=== PATIENT | male | born 1935 | race Caucasian/White ===

== ENCOUNTER 2017-09-17 18:21 | Emergency (ER) | payer BC ==
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
[2017-09-17 19:09] VITALS: BP 160/90; PULSE 97; TEMP 97.9; BMI 23.5
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
--- NOTE | 2017-09-17 19:27 | PDOC ---
Attending Attestation - Resident Resident Name: Krishna Saravia - ED Attending Attestation I have performed the following: I have examined & evaluated the patient, The case was reviewed & discussed with the resident, I agree w/resident's findings & plan, Exceptions are as noted - HPI HPI: 09/17/17 19:26 -year-old male brought in by ambulance from home for postsurgical bleeding. He had basal cell carcinoma and had excision done in [place] today. He states his sutures were placed. However, he bled through his packing and became frightened and called 911 - Physicial Exam PE: 09/17/17 19:27 wnwd frail appearing 09/17/17 21:13 frail alert,conversant 82 yo male p/w bleeding thru his surgical wedge resection for basal cell Ca done by his industrial cleaning technician earlier today head extensive surgical incision extending from forehead down to his nose - Medical Decision Making 09/18/17 02:03 Patient received 2 mattress sutures and Surgicel was placed over the area. We were able to stop the bleeding. The patient was discharged home. The plan is for him to follow-up with his industrial cleaning technician later in the day
[2017-09-17] MEDS ORDERED: LIDOCAINE 1%/EPI 1:100000 (20 ML MULTI DOSE VIAL) ONE (20:38)
== END 2017-09-17 21:45 | disposition home or self-care (01) ==
LOC: JER 18:21
PROC: 0HQ1XZZ Repair Face Skin, External Approach (ICD-10-PCS; principal; 2017-09-17)
DX: Z48.01 Encounter for change or removal of surgical wound dressing (principal); I10 Essential (primary) hypertension; K21.9 Gastro-esophageal reflux disease without esophagitis; Z95.5 Presence of coronary angioplasty implant and graft
CPT/HCPCS: 12013; 99282-25

== ENCOUNTER 2018-09-03 08:35 | Inpatient (IN) | payer BC, OTHER ==
[2018-09-03 08:57] VITALS: BMI 28.0
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
[2018-09-03] MEDS ORDERED: SODIUM CHLORIDE 1,000 ML IV STA (09:53)
[2018-09-03 10:45] LABS: EOS % 0.5 % (0-4.5); HEMOGLOBIN 10.7 GM/dL (11.7-16.9); LYMPH % 13.4 % (8-40); MCH 33.5 pg (25.7-33.7); MCHC 32.5 g/dl (32.0-35.9); MEAN PLT VOLUME 8.7 fl (7.5-11.1); MONO % 21.9 % (3.8-10.2); NEUT % 63.2 % (42.8-82.8); PLATELET COUNT 167 K/MM3 (134-434); RDW 22.6 % (11.9-15.9); WHITE BLOOD COUNT 6.2 K/mm3 (4.0-10.0)
[2018-09-03 10:58] LABS: INR 1.54 (0.83-1.09); PROTHROMBIN TIME (PATIENT) 18.3 SEC (9.7-13.0)
[2018-09-03 11:09] LABS: EPI CELLS 3.2 /HPF (0-5/HPF); URINE APPEARANCE CLEAR; URINE BACTERIA 2.4 /hpf (NEGATIVE); URINE BILIRUBIN NEGATIVE (NEGATIVE); URINE CASTS 10 /lpf (0-8); URINE COLOR YELLOW; URINE GLUCOSE (UA) NEGATIVE (NEGATIVE); URINE KETONE TRACE (NEGATIVE); URINE LEUK ESTERASE TRACE (NEGATIVE); URINE NITRITE NEGATIVE (NEGATIVE); URINE PROTEIN NEGATIVE (NEGATIVE); URINE RBC 2 /hpf (0-4); URINE WBC 2 /hpf (0-5)
[2018-09-03 11:18] LABS: ALBUMIN 3.7 g/dl (3.4-5.0); ALK PHOS 81 U/L (45-117); ANION GAP 6 MMOL/L (8-16); BILIRUBIN,TOTAL 0.5 mg/dL (0.2-1); BLOOD UREA NITROGEN 19 mg/dL (7-18); CALCIUM 8.6 mg/dL (8.5-10.1); CHLORIDE 110 mmol/L (98-107); CO2 25 mmol/L (21-32); CREATININE 0.8 mg/dL (0.55-1.3); GLUCOSE,RANDOM 82 mg/dL (74-106); MAGNESIUM 2.7 mg/dL (1.8-2.4); N-TERMINAL BNP 665.7 pg/ml (5-450); POTASSIUM 4.7 mmol/L (3.5-5.1); SGOT/AST 25 U/L (15-37); SGPT/ALT 19 U/L (13-61); SODIUM 141 mmol/L (136-145); TOT PROT 7.8 g/dl (6.4-8.2)
[2018-09-03 11:35] LABS: ANISOCYTOSIS 0; MACROCYTOSIS 0; PLATELET ESTIMATE NORMAL; TARGET CELLS 1+
--- NOTE | 2018-09-03 16:17 | CON.CARD ---
Consult Consult Specialty:: Cardiology for Dr. Cedeno Referred by:: Dr. Héctor Shah Reason for Consultation:: Cardiac evaluation for AF, fatigue and mild BNP elevation - History of Present Illness Chief Complaint: Weakness and palpitations History of Present Illness: ER HPI reviewed: "Mr Roa is an 83 yo M presents to the ER with a complaint of tremulosuness He has a h/o a-fib (on pradaxa), HTN, skin cancer, and bph Pt states he first noted his symptoms yesterday He awoke in his usual state of health, after showering he noted that he felt weak and noted tremulousness He had to sit down, the symptoms lasted approximately 30 minutes and resolved He noted that when he exerted himself through out the day he felt weak and had to limit his activity PMH: Afib, HTN, Skin Cancer, BPH PSH: multiple abdominal surgeries, CEA, numarous skin cancer excisions Meds: please see MAR ALL: NKDA Social: denies alcohol, drug, cigarette use" He denies chest pain but states he felt palpitations twice lastin 5-10 minutes. Episode of diaphoresis with minimal exertion and general increase in exertional fatigue with mild CORTEZ. No PND, orthopnea. No fever of chills. Denies edema or cough. - History Source History Provided By: Patient, Medical Record - Past Medical History PRODUCT GRADER: Yes: Other (TREMOR ) Cardio/Vascular: Yes: AFIB, HTN Gastrointestinal: Yes: GERD Psych: Yes: Depression Musculoskeletal: Yes: Osteoarthritis Dermatology: Yes: Squamous Cell - Past Surgical History Past Surgical History: Yes: Carotid Endarterectomy, Hernia Repair (numerous skin sq cell ca exisions) - Alcohol/Substance Use Hx Alcohol Use: No History of Substance Use: reports: None - Smoking History Smoking history: Never smoked Have you smoked in the past 12 months: No Aproximately how many cigarettes per day: 0 If you are a former smoker, when did you quit?: 1960S - Social History Usual Living Arrangement: Alone History of Recent Travel: No Home Medications - Allergies Allergies/Adverse Reactions: Allergies Allergy/AdvReac Type Severity Reaction Status Date / Time No Known Allergies Allergy Verified 09/17/17 19:05 - Home Medications Home Medications: Ambulatory Orders Omeprazole 20 mg PO DAILY 08/31/11 clonazePAM [Klonopin -] 0.5 mg PO BID 12/05/12 Metoprolol Tartrate 75 mg PO BID 06/11/14 Primidone 250 mg PO BID 06/11/14 Tamsulosin HCl [Flomax -] 0.4 mg PO DAILY 06/11/14 Vitamin B Complex [B Complex] 1 each PO DAILY 06/11/14 Aspirin [Aspirin EC] 81 mg PO DAILY 12/29/15 Dabigatran Etexilate Mesylate [Pradaxa -] 150 mg PO BID cap 01/12/16 Diltiazem Cd [Cardizem Cd -] 240 mg PO DAILY cap.cd.24h 01/12/16 Hydroxyurea 500 mg PO BID 09/17/17 Sertraline HCl [Zoloft -] 50 mg PO DAILY 09/17/17 Ubidecarenone [Coq-10] 100 mg PO DAILY 09/17/17 Family Disease History - Family Disease History Family History: Unremarkable (not pertinent to this presentation) Family Disease History: Heart Disease: Father Review of Systems Findings/Remarks: Increased exertional fatigue. Episodes of palpitations. Episode of diaphoresis. SEE HPI - Review of Systems Constitutional: reports: Weakness HENT: denies: No Symptoms, Difficult Swallowing, Ear Discharge, Ear Pain, Epistaxis, Gingival Bleeding, Hearing Loss, Mouth Swelling, Nasal Congestion, Ocular Prosthesis, Throat Pain, Toothache, Ringing in Ears, Other Neck: denies: No Symptoms, Decreased ROM, Lumps, Pain on Movement, Stiffness, Swollen Glands, Tenderness, Other Cardiovascular: reports: Palpitations Respiratory: reports: SOB on Exertion Gastrointestinal: denies: No Symptoms, Abdominal Pain, Bloating, Constipation, Diarrhea, Dysphagia, Indigestion, Melena, Nausea, Rectal Bleeding, Vomiting, Vomiting Blood, Other Genitourinary: denies: No Symptoms, Burning, Discharge, Dysuria, Flank Pain, Frequency, Hematuria, Incontinence, Lesions, Menses, Pain, Testicular Mass, Testicular Pain, Testicular Swelling, Urgency, Vaginal Bleeding, Other Breasts: denies: No Symptoms Reported, See HPI, Breast Implants, Discharge from Nipple, Lumps, Pain, Skin Changes, Other Musculoskeletal: denies: No Symptoms, Back Pain, Crepitus, Decreased ROM, Extremity Pain, Joint Pain, Joint Swelling, Muscle Pain, Muscle Cramps, Muscle Weakness, Other Integumentary: denies: No Symptoms, Blister, Bruising, Change in Color, Eczema, Erythema, Incision, Lesions, Lump, Pallor, Pruritis, Rash, Wound, Other Neurological: denies: No Symptoms, Change in LOC, Change in Speech, Confusion, Dizziness, Headache, Incoordination, Numbness, Parasthesia, Pre-Existing Deficit , Seizure, Syncope, Tremors, Unsteady Gait, Weakness, Other Endocrine: denies: No Symptoms, Excessive Sweating, Flushing, Increased Hunger, Increased Thirst, Intolerance to Cold, Intolerance to Heat, Unexplained Weight Gain, Unexplained Weight Loss, Other Hematology/Lymphatic: denies: No Symptoms, Easily Bruised, Excessive Bleeding, Swollen Glands, Other Psychiatric: denies: No Symptoms, Altered Sleep Pattern, Anxiety, Depression, Hallucinations, Panic, Paranoia, Suicidal, Other - Risk Factors Known Risk Factors: Yes: Hypertension Vital Signs: Vital Signs Temperature 98.6 F 09/03/18 08:54 Pulse Rate 75 09/03/18 10:59 Respiratory Rate 18 09/03/18 08:54 Blood Pressure 144/80 09/03/18 10:59 O2 Sat by Pulse Oximetry (%) 99 09/03/18 08:57 Constitutional: Yes: No Distress, Calm Eyes: Yes: Conjunctiva Clear Neck: Yes: Other (No JVD) Respiratory: Yes: CTA Bilaterally Gastrointestinal: Yes: Soft Cardiovascular: Yes: Pulse Irregular JVD: No Carotid Bruit: No PMI: Non-Displaced Edema: No Peripheral Pulses WNL: Yes Neurological: Yes: Alert, Oriented ...Motor Strength: WNL Psychiatric: Yes: WNL - Other Data Labs, Other Data: CBC, BMP 09/03/18 10:35 09/03/18 10:35 INR, PTT INR 1.54 (0.83-1.09) H 09/03/18 10:35 Troponin, BNP 09/03/18 10:35 Troponin I < 0.02 B-Natriuretic Peptide 665.7 H Troponin, BNP 09/03/18 10:35 Troponin I < 0.02 B-Natriuretic Peptide 665.7 H Echo: Pending Imaging - Results Chest X-ray: Image Reviewed EKG: Image Reviewed (AF [address] changes.) Problem List - Problems (1) Weakness Code(s): R53.1 - WEAKNESS (2) Atrial fibrillation Code(s): I48.91 - UNSPECIFIED ATRIAL FIBRILLATION Qualifiers: Atrial fibrillation type: persistent Qualified Code(s): I48.1 - Persistent atrial fibrillation (3) Palpitations Code(s): R00.2 - PALPITATIONS Assessment/Plan IMP: 1. Permanent AF on AC 2. Generalized weakness, nonspecific 3. Palpitations. 4. Mildly elevated BNP Cardiac differential includes: AF w/ episodes of RVR vs. Mild acute on chronic diastolic CHF vs. ischemia Unlikely PE with normal O2 saturation; no signs or sx of infection REC: 1. Telemetry to assess AF rates. 2. Serial cardiac enzymes 3. Echo for EF assessment 4. Daily weights 5. Gentle diuresis with monitoring of renal fx and electrolytes 6. Continue AC 7. To consider pharm MIBI prior to d/c pending clinical course, enzymes. Coverage for Dr. Cedeno Will follow.
[2018-09-03] MEDS ORDERED: FUROSEMIDE 40 MG/4 ML INJECTABLE VIAL IVPUSH ONE (16:37)
[2018-09-03] MEDS ORDERED: FUROSEMIDE 40 MG/4 ML INJECTABLE VIAL IVPUSH SCH (16:45)
[2018-09-03] MEDS ORDERED: FUROSEMIDE 40 MG/4 ML INJECTABLE VIAL ONE (16:52)
[2018-09-03] MEDS: METOPROLOL TARTRATE 50 MG TABLET (FP) PO SCH (22:05)
[2018-09-03] MEDS: DABIGATRAN ETEXILATE MESYLATE 150 MG CAPSULE PO SCH (22:05)
[2018-09-03] MEDS: PRIMIDONE 250 MG TABLET PO SCH (23:00)
[2018-09-04] MEDS: PRIMIDONE 250 MG TABLET PO SCH ×3 (05:24→22:14)
[2018-09-04 07:51] LABS: BASO % 1.5 % (0-2.0); EOS % 2.7 % (0-4.5); HEMATOCRIT 32.3 % (35.4-49); HEMOGLOBIN 10.5 GM/dL (11.7-16.9); LYMPH % 17.3 % (8-40); MCH 33.4 pg (25.7-33.7); MCHC 32.5 g/dl (32.0-35.9); MEAN CELL VOLUME 102.8 fl (80-96); MEAN PLT VOLUME 8.7 fl (7.5-11.1); NEUT % 51.5 % (42.8-82.8); PLATELET COUNT 145 K/MM3 (134-434); RBC 3.14 M/mm3 (4.00-5.60); WHITE BLOOD COUNT 4.7 K/mm3 (4.0-10.0)
[2018-09-04 08:06] LABS: ALBUMIN 3.6 g/dl (3.4-5.0); ALK PHOS 85 U/L (45-117); ANION GAP 6 MMOL/L (8-16); BILIRUBIN,TOTAL 0.9 mg/dL (0.2-1); BLOOD UREA NITROGEN 15 mg/dL (7-18); CALCIUM 8.4 mg/dL (8.5-10.1); CHLORIDE 107 mmol/L (98-107); CO2 24 mmol/L (21-32); CREATININE 0.7 mg/dL (0.55-1.3); GLUCOSE,RANDOM 84 mg/dL (74-106); MAGNESIUM 2.4 mg/dL (1.8-2.4); SGOT/AST 22 U/L (15-37); SGPT/ALT 23 U/L (13-61); SODIUM 137 mmol/L (136-145); TOT PROT 7.4 g/dl (6.4-8.2)
[2018-09-04] MEDS ORDERED: PT OWN MED DRAWER 7, Y5N ONE ×3 (10:37→21:37)
[2018-09-04] MEDS: METOPROLOL TARTRATE 50 MG TABLET (FP) PO SCH ×2 (10:38→22:11)
[2018-09-04] MEDS: TAMSULOSIN HCL 0.4 MG CAP PO SCH (10:38)
[2018-09-04] MEDS: FINASTERIDE 5 MG TABLET (FP) PO SCH (10:38)
[2018-09-04] MEDS: SERTRALINE HCL 50 MG TABLET (FP) PO SCH (10:38)
[2018-09-04] MEDS: PANTOPRAZOLE 40 MG TABLET (FP) PO SCH (10:39)
[2018-09-04] MEDS: DABIGATRAN ETEXILATE MESYLATE 150 MG CAPSULE PO SCH ×2 (10:39→22:11)
[2018-09-04 11:29] LABS: ANISOCYTOSIS 1+; MACROCYTOSIS 1+; PLATELET ESTIMATE DECREASED; TARGET CELLS 1+
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
--- NOTE | 2018-09-04 12:35 | HP ---
Admitting History and Physical - Admission Chief Complaint: c/o palpitations vs high heart rate ? sweating weakness x 2days especially. when standing History Source: Patient Limitations to Obtaining History: No Limitations - Past Medical History CORRECTIVE THERAPY AIDE: Yes: Other (TREMOR ) Cardiovascular: Yes: AFIB, HTN Gastrointestinal: Yes: GERD Heme/Onc: Yes: Cancer (squamous cell skin), Myeloproliferative Synd Psych: Yes: Depression Musculoskeletal: Yes: Osteoarthritis Dermatology: Yes: Squamous Cell - Past Surgical History Past Surgical History: Yes: Carotid Endarterectomy, Hernia Repair (numerous skin sq cell ca exisions) - Smoking History Smoking history: Never smoked Have you smoked in the past 12 months: No Aproximately how many cigarettes per day: 0 If you are a former smoker, when did you quit?: 1960S - Alcohol/Substance Use Hx Alcohol Use: No History of Substance Use: reports: None - Social History Usual Living Arrangement: Yes: Alone ADL: Independent History of Recent Travel: No Home Medications - Allergies Allergies/Adverse Reactions: Allergies Allergy/AdvReac Type Severity Reaction Status Date / Time No Known Allergies Allergy Verified 09/17/17 19:05 - Home Medications Home Medications: Ambulatory Orders Omeprazole 20 mg PO DAILY 08/31/11 clonazePAM [Klonopin -] 0.5 mg PO BID 12/05/12 Metoprolol Tartrate 75 mg PO BID 06/11/14 Primidone 250 mg PO BID 06/11/14 Tamsulosin HCl [Flomax -] 0.4 mg PO DAILY 06/11/14 Vitamin B Complex [B Complex] 1 each PO DAILY 06/11/14 Aspirin [Aspirin EC] 81 mg PO DAILY 12/29/15 Dabigatran Etexilate Mesylate [Pradaxa -] 150 mg PO BID cap 01/12/16 Diltiazem Cd [Cardizem Cd -] 240 mg PO DAILY cap.cd.24h 01/12/16 Hydroxyurea 500 mg PO BID 09/17/17 Sertraline HCl [Zoloft -] 50 mg PO DAILY 09/17/17 Ubidecarenone [Coq-10] 100 mg PO DAILY 09/17/17 Family Disease History - Family Disease History Family History: Unremarkable Family Disease History: Heart Disease: Father Review of Systems - Review of Systems Constitutional: reports: Weakness Eyes: reports: No Symptoms HENT: reports: No Symptoms Neck: reports: No Symptoms Cardiovascular: reports: No Symptoms, Palpitations Respiratory: reports: No Symptoms Gastrointestinal: reports: No Symptoms Genitourinary: reports: No Symptoms Breasts: reports: No Symptoms Reported Musculoskeletal: reports: No Symptoms Integumentary: reports: No Symptoms Neurological: reports: No Symptoms Endocrine: reports: No Symptoms Hematology/Lymphatic: reports: No Symptoms Psychiatric: reports: No Symptoms Physical Examination Vital Signs: Vital Signs Temperature 98.1 F 09/04/18 09:00 Pulse Rate 102 H 09/04/18 09:00 Respiratory Rate 20 09/04/18 09:00 Blood Pressure 148/75 09/04/18 09:00 O2 Sat by Pulse Oximetry (%) 98 09/03/18 23:00 Constitutional: Yes: Well Nourished Eyes: Yes: WNL HENT: Yes: WNL Neck: Yes: Other (tremor?) Cardiovascular: Yes: Pulse Irregular Respiratory: Yes: WNL Gastrointestinal: Yes: WNL ...Rectal Exam: Yes: Deferred Renal/: Yes: WNL, Other (scrotal hernia chronic) Breast(s): Yes: WNL Musculoskeletal: Yes: WNL Extremities: Yes: WNL Edema: No Peripheral Pulses WNL: Yes Integumentary: Yes: WNL Neurological: Yes: Other (temor n/c) ...Motor Strength: WNL Psychiatric: Yes: WNL Labs: CBC, BMP 09/04/18 05:40 09/04/18 05:40 Assessment/Plan stress rest cont to moniter tele symptoms cont all tx as is chk echo and will advse gental diurisis?based on bnp level will chk to see if he had appropriate vaccines foe splenectomy prophylaxisi hib ? flu pneumonia given ? menigitis will see
--- NOTE | 2018-09-04 13:39 | EKG ---
Test Reason : Blood Pressure : / mmHG Vent. Rate : 075 BPM Atrial Rate : 088 BPM P-R Int : 000 ms QRS Dur : 086 ms QT Int : 378 ms P-R-T Axes : 000 -20 016 degrees QTc Int : 422 ms ATRIAL FIBRILLATION ABNORMAL ECG WHEN COMPARED WITH ECG OF 30-DEC-2015 08:43, VENT. RATE HAS DECREASED BY [address] NO LONGER DEPRESSED IN ANTERIOR LEADS ST ELEVATION NOW PRESENT IN LATERAL LEADS T WAVE INVERSION LESS EVIDENT IN INFERIOR LEADS NONSPECIFIC T WAVE ABNORMALITY NO LONGER EVIDENT IN ANTEROLATERAL LEADS Confirmed by MATTHEW ADAMES MD ([id number]) on 09/04/2018 1:39:09 PM Referred By: Confirmed By:MATTHEW ADAMES MD
--- NOTE | 2018-09-04 14:26 | ECHO ---
Name: MELLO OLIVER Exam:Adult Echocardiogram Study Date: 09/04/2018 08:37 AM Age: 83 yrs Reason For Study: CHF Height: 69 in Weight: 190 lb BSA: 2.0 m2 MMode/2D Measurements & Calculations IVSd: 0.99 cm Ao root diam: 3.7 cm LVIDd: 4.9 cm LA dimension: 4.3 cm LVIDs: 3.1 cm LVPWd: 0.96 cm EDV(Teich): 114.9 ml LVOT diam: 2.3 cm ESV(Teich): 39.0 ml LAV (MOD-bp): 206.0 ml Time Measurements Pulm. R-R: 0.76 sec Pulm. HR: 79.0 BPM Doppler Measurements & Calculations MV E max pk: 77.5 cm/sec Ao V2 max: 98.4 cm/sec MV A max pk: 25.7 cm/sec Ao max P.0 mmHg MV E/A: 3.0 Ao V2 mean: 101.5 cm/sec MV dec time: 0.15 sec Ao mean P.8 mmHg Ao V2 VTI: 28.9 cm TONY(I,D): 1.9 cm2 AI P1/2t: 917.8 msec TONY(V,D): 3.2 cm2 AI max pk: 318.2 cm/sec LV V1 max P.4 mmHg AI max P.5 mmHg LV V1 mean P.99 mmHg AI dec slope: 101.6 cm/sec2 LV V1 max: 77.1 cm/sec LV V1 mean: 46.2 cm/sec LV V1 VTI: 13.2 cm MR max pk: 600.7 cm/sec SV(LVOT): 54.0 ml MR max P.5 mmHg TR max pk: 217.7 cm/sec PI end-d pk: 108.6 cm/sec TR max P.2 mmHg Med Peak E' Pk: 8.0 cm/sec Med E/e': 9.7 Lat Peak E' Pk: 11.0 cm/sec Lat E/e': 7.1 Procedure A complete two-dimensional transthoracic echocardiogram was performed (2D, M-mode, Doppler and color flow Doppler). Left Ventricle The left ventricular size, thickness and function are normal. The left ventricular ejection fraction is normal. Ejection Fraction = 60-65%. The left ventricular wall motion is normal. Right Ventricle The right ventricle is normal in size and function. Atria The left atrium is moderately dilated. Right atrial size is normal. Mitral Valve There is moderate mitral regurgitation. Tricuspid Valve There is mild tricuspid regurgitation. Right ventricular systolic pressure is normal. Aortic Valve No hemodynamically significant valvular aortic stenosis. Mild aortic regurgitation. Pulmonic Valve There is no pulmonic valvular regurgitation. Great Vessels The aortic root is normal size. Pericardium/Pleura There is no pericardial effusion. Interpretation Summary The left ventricular size, thickness and function are normal The right ventricle is normal in size and function. The left atrium is moderately dilated. There is moderate mitral regurgitation. There is mild tricuspid regurgitation. Mild aortic regurgitation. MD Daniel rCuz 09/04/2018 02:26 PM
--- NOTE | 2018-09-04 14:53 | PN ---
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 No chest pain, palps, dizziness. tele: afib, rate controlled Current Medications Dabigatran (Pradaxa -) 150 mg PO BID [facility] Last Admin: 09/04/18 10:39 Dose: 150 mg Diltiazem HCl (Cardizem Cd -) 240 mg PO DAILY [facility] Last Admin: 09/04/18 10:38 Dose: 240 mg Finasteride (Proscar -) 5 mg PO DAILY [facility] Last Admin: 09/04/18 10:38 Dose: 5 mg Hydroxyurea (Hydrea -) 500 mg PO DAILY [facility] Metoprolol Tartrate (Lopressor -) 75 mg PO BID [facility] Last Admin: 09/04/18 10:38 Dose: 75 mg Pantoprazole Sodium (Protonix -) 40 mg PO DAILY [facility] Last Admin: 09/04/18 10:39 Dose: 40 mg Primidone (Mysoline -) 250 mg PO TID [facility] Last Admin: 09/04/18 14:02 Dose: 250 mg Sertraline HCl (Zoloft -) 50 mg PO DAILY [facility] Last Admin: 09/04/18 10:38 Dose: 50 mg Tamsulosin HCl (Flomax -) 0.4 mg PO DAILY@0830 [facility] Last Admin: 09/04/18 10:38 Dose: 0.4 mg Vital Signs Period Temp Pulse Resp BP Sys/Thomas Pulse Ox Last 24 Hr 97.8 F-98.1 F 70-102 18-20 131-183/71-101 98-98 Constitutional: Yes: No Distress, Calm Eyes: Yes: Conjunctiva Clear Neck: Yes: Other (No JVD) Respiratory: Yes: CTA Bilaterally Gastrointestinal: Yes: Soft Cardiovascular: Yes: Pulse Irregular JVD: No Carotid Bruit: No PMI: Non-Displaced Edema: No Peripheral Pulses WNL: Yes Neurological: Yes: Alert, Oriented ...Motor Strength: WNL Psychiatric: Yes: WNL Imaging - Results Chest X-ray: Image Reviewed EKG: Image Reviewed (AF [address] changes.) Problem List - Problems (1) Weakness Code(s): R53.1 - WEAKNESS (2) Atrial fibrillation Code(s): I48.91 - UNSPECIFIED ATRIAL FIBRILLATION Qualifiers: Atrial fibrillation type: persistent Qualified Code(s): I48.1 - Persistent atrial fibrillation (3) Palpitations Code(s): R00.2 - PALPITATIONS Assessment/Plan IMP: 1. Permanent AF on AC 2. Generalized weakness, nonspecific 3. Palpitations. 4. Mildly elevated BNP Cardiac differential includes: AF w/ episodes of RVR vs. Mild acute on chronic diastolic CHF vs. ischemia Unlikely PE with normal O2 saturation; no signs or sx of infection REC: 1. AF rate controlled on telemetry 2. trop neg x 4, less likely ACS 3. Echo shows nl LV function, mod MR. 4. Daily weights 5. Received lasix 20 mg IV yesterday, feels better. Appears euvolemic today, defer further lasix. 6. Continue AC 7. Pharm mibi for further evaluation
[2018-09-04] MEDS: HYDROXYUREA 500 MG CAPSULE PO SCH (17:32)
[2018-09-05] MEDS: PRIMIDONE 250 MG TABLET PO SCH ×3 (07:05→21:54)
[2018-09-05 07:15] LABS: BASO % 1.2 % (0-2.0); HEMATOCRIT 32.5 % (35.4-49); HEMOGLOBIN 10.6 GM/dL (11.7-16.9); LYMPH % 19.3 % (8-40); MCH 33.4 pg (25.7-33.7); MCHC 32.5 g/dl (32.0-35.9); MEAN CELL VOLUME 102.7 fl (80-96); MEAN PLT VOLUME 8.9 fl (7.5-11.1); MONO % 24.1 % (3.8-10.2); NEUT % 52.4 % (42.8-82.8); PLATELET COUNT 135 K/MM3 (134-434); RBC 3.17 M/mm3 (4.00-5.60); RDW 22.5 % (11.9-15.9); WHITE BLOOD COUNT 5.7 K/mm3 (4.0-10.0)
[2018-09-05 08:03] LABS: ALBUMIN 3.5 g/dl (3.4-5.0); ALK PHOS 84 U/L (45-117); ANION GAP 6 MMOL/L (8-16); BILIRUBIN,TOTAL 0.6 mg/dL (0.2-1); BLOOD UREA NITROGEN 15 mg/dL (7-18); CALCIUM 8.1 mg/dL (8.5-10.1); CHLORIDE 107 mmol/L (98-107); CO2 24 mmol/L (21-32); CREATININE 0.7 mg/dL (0.55-1.3); GLUCOSE,RANDOM 82 mg/dL (74-106); LDH 132 U/L (87-246); SGOT/AST 27 U/L (15-37); SGPT/ALT 30 U/L (13-61); SODIUM 138 mmol/L (136-145); TOT PROT 7.1 g/dl (6.4-8.2)
[2018-09-05] MEDS: TAMSULOSIN HCL 0.4 MG CAP PO SCH ×2 (08:36→14:09)
[2018-09-05] MEDS ORDERED: REGADENOSON 0.4 MG/5 ML PRE-FILLED SYRINGE IVPUSH ONE ×2 (09:15→10:10)
--- NOTE | 2018-09-05 09:22 | PN ---
Progress Note, Physician Chief Complaint: no distress TELE: AF with average rate 90s. - Current Medication List Current Medications: Active Medications Dabigatran (Pradaxa -) 150 mg PO BID [facility] Last Admin: 09/04/18 22:11 Dose: 150 mg Diltiazem HCl (Cardizem Cd -) 240 mg PO DAILY [facility] Last Admin: 09/04/18 10:38 Dose: 240 mg Finasteride (Proscar -) 5 mg PO DAILY [facility] Last Admin: 09/04/18 10:38 Dose: 5 mg Hydroxyurea (Hydrea -) 500 mg PO DAILY [facility] Last Admin: 09/04/18 17:32 Dose: 500 mg Metoprolol Tartrate (Lopressor -) 75 mg PO BID [facility] Last Admin: 09/04/18 22:11 Dose: 75 mg Pantoprazole Sodium (Protonix -) 40 mg PO DAILY [facility] Last Admin: 09/04/18 10:39 Dose: 40 mg Primidone (Mysoline -) 250 mg PO TID [facility] Last Admin: 09/05/18 07:05 Dose: Not Given Sertraline HCl (Zoloft -) 50 mg PO DAILY [facility] Last Admin: 09/04/18 10:38 Dose: 50 mg Tamsulosin HCl (Flomax -) 0.4 mg PO DAILY@0830 [facility] Last Admin: 09/05/18 08:36 Dose: Not Given - Objective Vital Signs: Vital Signs Temperature 97.9 F 09/05/18 09:00 Pulse Rate 82 09/05/18 09:00 Respiratory Rate 18 09/05/18 09:00 Blood Pressure 156/90 09/05/18 09:00 O2 Sat by Pulse Oximetry (%) 98 09/05/18 07:00 Constitutional: Yes: No Distress Cardiovascular: Yes: Pulse Irregular Respiratory: Yes: CTA Bilaterally Gastrointestinal: Yes: Soft Neurological: Yes: Alert, Oriented Labs: CBC, BMP 09/05/18 05:30 09/05/18 05:30 INR, PTT INR 1.54 (0.83-1.09) H 09/03/18 10:35 Laboratory Tests 09/03/18 09/03/18 09/04/18 17:05 21:20 05:40 WBC Hgb Plt Count Sodium Potassium BUN Creatinine Troponin I < 0.02 < 0.02 < 0.02 09/05/18 09/05/18 05:30 05:30 WBC 5.7 Hgb 10.6 L Plt Count 135 Sodium 138 Potassium 4.0 BUN 15 Creatinine 0.7 Troponin I - ....Imaging EKG: Image Reviewed Problem List - Problems (1) Weakness Code(s): R53.1 - WEAKNESS (2) Atrial fibrillation Code(s): I48.91 - UNSPECIFIED ATRIAL FIBRILLATION Qualifiers: Atrial fibrillation type: persistent Qualified Code(s): I48.1 - Persistent atrial fibrillation (3) Palpitations Code(s): R00.2 - PALPITATIONS Assessment/Plan IMP: 1. Permanent AF on AC 2. Generalized weakness, nonspecific 3. Palpitations. 4. Mildly elevated BNP Cardiac differential includes: AF w/ episodes of RVR vs. Mild acute on chronic diastolic CHF vs. ischemia Unlikely PE with normal O2 saturation; no signs or sx of infection REC: 1. AF rate controlled on telemetry 2. Trop neg x 4 3. Echo shows nl LV function, mod MR. 4. Daily weights 5. Euvolemic. No further diuretic recommended at this time. 6. Continue AC 7. Pharm mibi today
[2018-09-05] MEDS ORDERED: METOPROLOL TARTRATE 5 MG/5 ML VIAL ONE (12:29)
[2018-09-05] MEDS ORDERED: AMINOPHYLLINE 250 MG/10 ML VIAL IVPUSH ONE ×2 (12:30)
[2018-09-05] MEDS ORDERED: METOPROLOL TARTRATE 5 MG/5 ML VIAL IVPUSH ONE ×2 (12:30)
[2018-09-05 13:12] LABS: ANISOCYTOSIS 0; MACROCYTOSIS 0; PLATELET ESTIMATE NORMAL; TARGET CELLS 1+
--- NOTE | 2018-09-05 13:13 | PN ---
Progress Note, Physician - Current Medication List Current Medications: Active Medications Dabigatran (Pradaxa -) 150 mg PO BID [facility] Last Admin: 09/04/18 22:11 Dose: 150 mg Diltiazem HCl (Cardizem Cd -) 240 mg PO DAILY [facility] Last Admin: 09/04/18 10:38 Dose: 240 mg Finasteride (Proscar -) 5 mg PO DAILY [facility] Last Admin: 09/04/18 10:38 Dose: 5 mg Hydroxyurea (Hydrea -) 500 mg PO DAILY [facility] Last Admin: 09/04/18 17:32 Dose: 500 mg Metoprolol Tartrate (Lopressor -) 75 mg PO BID [facility] Last Admin: 09/04/18 22:11 Dose: 75 mg Pantoprazole Sodium (Protonix -) 40 mg PO DAILY [facility] Last Admin: 09/04/18 10:39 Dose: 40 mg Primidone (Mysoline -) 250 mg PO TID [facility] Last Admin: 09/05/18 07:05 Dose: Not Given Sertraline HCl (Zoloft -) 50 mg PO DAILY [facility] Last Admin: 09/04/18 10:38 Dose: 50 mg Tamsulosin HCl (Flomax -) 0.4 mg PO DAILY@0830 [facility] Last Admin: 09/05/18 08:36 Dose: Not Given - Objective Vital Signs: Vital Signs Temperature 97.9 F 09/05/18 09:00 Pulse Rate 82 09/05/18 09:00 Respiratory Rate 18 09/05/18 09:00 Blood Pressure 156/90 09/05/18 09:00 O2 Sat by Pulse Oximetry (%) 98 09/05/18 07:00 Labs: CBC, BMP 09/05/18 05:30 09/05/18 05:30 INR, PTT INR 1.54 (0.83-1.09) H 09/03/18 10:35 Assessment/Plan pt ?need p/y nh w sprain manor will speak to pt
[2018-09-05] MEDS: PANTOPRAZOLE 40 MG TABLET (FP) PO SCH (14:09)
[2018-09-05] MEDS: FINASTERIDE 5 MG TABLET (FP) PO SCH (14:09)
[2018-09-05] MEDS: SERTRALINE HCL 50 MG TABLET (FP) PO SCH (14:09)
[2018-09-05] MEDS: DABIGATRAN ETEXILATE MESYLATE 150 MG CAPSULE PO SCH ×2 (14:10→21:53)
[2018-09-05] MEDS: METOPROLOL TARTRATE 50 MG TABLET (FP) PO SCH ×2 (14:11→21:53)
[2018-09-05] MEDS: HYDROXYUREA 500 MG CAPSULE PO SCH (14:13)
[2018-09-05] MEDS ORDERED: PT OWN MED DRAWER 7, Y5N ONE ×2 (14:13→21:40)
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
[2018-09-06 04:10] LABS: SERUM IRON SATURATION 52 % (15-55); TOTAL IRON BINDING CAPACITY 176 ug/dL (250-450); UIBC 84 ug/dL (111-343)
[2018-09-06] MEDS: PRIMIDONE 250 MG TABLET PO SCH ×3 (05:10→22:00)
[2018-09-06] MEDS ORDERED: PT OWN MED DRAWER 7, Y5N ONE ×4 (08:27→21:58)
[2018-09-06] MEDS: TAMSULOSIN HCL 0.4 MG CAP PO SCH (09:44)
[2018-09-06] MEDS: DABIGATRAN ETEXILATE MESYLATE 150 MG CAPSULE PO SCH ×2 (09:44→22:00)
[2018-09-06] MEDS: HYDROXYUREA 500 MG CAPSULE PO SCH (09:44)
[2018-09-06] MEDS: SERTRALINE HCL 50 MG TABLET (FP) PO SCH (09:44)
[2018-09-06] MEDS: METOPROLOL TARTRATE 50 MG TABLET (FP) PO SCH ×2 (09:44→22:00)
[2018-09-06] MEDS: PANTOPRAZOLE 40 MG TABLET (FP) PO SCH (09:45)
[2018-09-06] MEDS: FINASTERIDE 5 MG TABLET (FP) PO SCH (09:45)
--- NOTE | 2018-09-06 11:09 | PN ---
Progress Note, Physician History of Present Illness: No complaints Tele: Afib 60-120s - Current Medication List Current Medications: Active Medications Dabigatran (Pradaxa -) 150 mg PO BID [facility] Last Admin: 09/06/18 09:44 Dose: 150 mg Diltiazem HCl (Cardizem Cd -) 240 mg PO DAILY [facility] Last Admin: 09/06/18 09:44 Dose: 240 mg Finasteride (Proscar -) 5 mg PO DAILY [facility] Last Admin: 09/06/18 09:45 Dose: 5 mg Hydroxyurea (Hydrea -) 500 mg PO DAILY [facility] Last Admin: 09/06/18 09:44 Dose: 500 mg Metoprolol Tartrate (Lopressor -) 100 mg PO BID [facility] Last Admin: 09/06/18 09:44 Dose: 100 mg Pantoprazole Sodium (Protonix -) 40 mg PO DAILY [facility] Last Admin: 09/06/18 09:45 Dose: 40 mg Primidone (Mysoline -) 250 mg PO TID [facility] Last Admin: 09/06/18 05:10 Dose: 250 mg Sertraline HCl (Zoloft -) 50 mg PO DAILY [facility] Last Admin: 09/06/18 09:44 Dose: 50 mg Tamsulosin HCl (Flomax -) 0.4 mg PO DAILY@0830 [facility] Last Admin: 09/06/18 09:44 Dose: 0.4 mg - Objective Vital Signs: Vital Signs Temperature 98.2 F 09/06/18 06:00 Pulse Rate 101 H 09/06/18 10:00 Respiratory Rate 20 09/06/18 10:00 Blood Pressure 142/70 09/06/18 10:00 O2 Sat by Pulse Oximetry (%) 97 09/06/18 05:00 Constitutional: Yes: Calm Cardiovascular: Yes: Pulse Irregular Respiratory: Yes: CTA Bilaterally Edema: No Labs: CBC, BMP 09/05/18 05:30 09/05/18 05:30 INR, PTT INR 1.54 (0.83-1.09) H 09/03/18 10:35 Assessment/Plan IMP: 1. Permanent AF on AC 2. Generalized weakness, nonspecific 3. Palpitations. 4. Mildly elevated BNP, Euvolemic. Creat stable. No further diuretic recommended at this time. 5. Echo shows nl LV function, mod MR. 6. Pharma MIBI with normal perfusion. LVEf 62% REC: 1. AF rate controlled on telemetry 2. Continue AC, on Dabigatran 150mg BID
--- NOTE | 2018-09-06 11:26 | PN ---
Progress Note, Physician History of Present Illness: hr rate better vss watch heart rate ? reflex ? d/c saturday ? home - Current Medication List Current Medications: Active Medications Dabigatran (Pradaxa -) 150 mg PO BID [facility] Last Admin: 09/06/18 09:44 Dose: 150 mg Diltiazem HCl (Cardizem Cd -) 240 mg PO DAILY [facility] Last Admin: 09/06/18 09:44 Dose: 240 mg Finasteride (Proscar -) 5 mg PO DAILY [facility] Last Admin: 09/06/18 09:45 Dose: 5 mg Hydroxyurea (Hydrea -) 500 mg PO DAILY [facility] Last Admin: 09/06/18 09:44 Dose: 500 mg Metoprolol Tartrate (Lopressor -) 100 mg PO BID [facility] Last Admin: 09/06/18 09:44 Dose: 100 mg Pantoprazole Sodium (Protonix -) 40 mg PO DAILY [facility] Last Admin: 09/06/18 09:45 Dose: 40 mg Primidone (Mysoline -) 250 mg PO TID [facility] Last Admin: 09/06/18 05:10 Dose: 250 mg Sertraline HCl (Zoloft -) 50 mg PO DAILY [facility] Last Admin: 09/06/18 09:44 Dose: 50 mg Tamsulosin HCl (Flomax -) 0.4 mg PO DAILY@0830 [facility] Last Admin: 09/06/18 09:44 Dose: 0.4 mg - Objective Vital Signs: Vital Signs Temperature 98.2 F 09/06/18 06:00 Pulse Rate 101 H 09/06/18 10:00 Respiratory Rate 20 09/06/18 10:00 Blood Pressure 142/70 09/06/18 10:00 O2 Sat by Pulse Oximetry (%) 99 09/06/18 11:12 Labs: CBC, BMP 09/05/18 05:30 09/05/18 05:30 INR, PTT INR 1.54 (0.83-1.09) H 09/03/18 10:35
[2018-09-07] MEDS ORDERED: PT OWN MED DRAWER 7, Y5N ONE ×2 (05:01→16:29)
[2018-09-07] MEDS: PRIMIDONE 250 MG TABLET PO SCH ×3 (05:03→21:36)
[2018-09-07 07:44] LABS: BASO % 1.9 % (0-2.0); HEMOGLOBIN 10.1 GM/dL (11.7-16.9); LYMPH % 28.2 % (8-40); MCH 33.5 pg (25.7-33.7); MCHC 32.6 g/dl (32.0-35.9); MEAN CELL VOLUME 102.7 fl (80-96); MEAN PLT VOLUME 9.1 fl (7.5-11.1); MONO % 25.8 % (3.8-10.2); NEUT % 39.1 % (42.8-82.8); PLATELET COUNT 120 K/MM3 (134-434); RBC 3.02 M/mm3 (4.00-5.60); RDW 22.6 % (11.9-15.9); WHITE BLOOD COUNT 4.4 K/mm3 (4.0-10.0)
[2018-09-07 08:00] LABS: ANION GAP 6 MMOL/L (8-16); BLOOD UREA NITROGEN 13 mg/dL (7-18); CALCIUM 8.4 mg/dL (8.5-10.1); CHLORIDE 107 mmol/L (98-107); CO2 25 mmol/L (21-32); CREATININE 0.7 mg/dL (0.55-1.3); GLUCOSE,RANDOM 87 mg/dL (74-106); POTASSIUM 4.2 mmol/L (3.5-5.1); SODIUM 138 mmol/L (136-145)
[2018-09-07] MEDS: PANTOPRAZOLE 40 MG TABLET (FP) PO SCH (09:40)
[2018-09-07] MEDS: DABIGATRAN ETEXILATE MESYLATE 150 MG CAPSULE PO SCH ×2 (09:40→21:36)
[2018-09-07] MEDS: FINASTERIDE 5 MG TABLET (FP) PO SCH (09:40)
[2018-09-07] MEDS: SERTRALINE HCL 50 MG TABLET (FP) PO SCH (09:40)
[2018-09-07] MEDS: TAMSULOSIN HCL 0.4 MG CAP PO SCH (09:40)
[2018-09-07] MEDS: METOPROLOL TARTRATE 50 MG TABLET (FP) PO SCH ×2 (09:40→21:36)
[2018-09-07] MEDS: HYDROXYUREA 500 MG CAPSULE PO SCH (09:41)
--- NOTE | 2018-09-07 10:17 | PN ---
Progress Note, Physician - Current Medication List Current Medications: Active Medications Dabigatran (Pradaxa -) 150 mg PO BID [facility] Last Admin: 09/07/18 09:40 Dose: 150 mg Diltiazem HCl (Cardizem Cd -) 240 mg PO DAILY [facility] Last Admin: 09/07/18 09:40 Dose: 240 mg Finasteride (Proscar -) 5 mg PO DAILY [facility] Last Admin: 09/07/18 09:40 Dose: 5 mg Hydroxyurea (Hydrea -) 500 mg PO DAILY [facility] Last Admin: 09/07/18 09:41 Dose: 500 mg Metoprolol Tartrate (Lopressor -) 100 mg PO BID [facility] Last Admin: 09/07/18 09:40 Dose: 100 mg Pantoprazole Sodium (Protonix -) 40 mg PO DAILY [facility] Last Admin: 09/07/18 09:40 Dose: 40 mg Primidone (Mysoline -) 250 mg PO TID [facility] Last Admin: 09/07/18 05:03 Dose: 250 mg Sertraline HCl (Zoloft -) 50 mg PO DAILY [facility] Last Admin: 09/07/18 09:40 Dose: 50 mg Tamsulosin HCl (Flomax -) 0.4 mg PO DAILY@0830 [facility] Last Admin: 09/07/18 09:40 Dose: 0.4 mg - Objective Vital Signs: Vital Signs Temperature 98 F 09/07/18 09:00 Pulse Rate 68 09/07/18 09:00 Respiratory Rate 18 09/07/18 09:00 Blood Pressure 128/80 09/07/18 09:00 O2 Sat by Pulse Oximetry (%) 98 09/06/18 20:37 Constitutional: Yes: Well Nourished Eyes: Yes: WNL HENT: Yes: WNL Neck: Yes: WNL Cardiovascular: Yes: Pulse Irregular, S4 Gastrointestinal: Yes: WNL ...Rectal Exam: Yes: Deferred Genitourinary: Yes: WNL Breast(s): Yes: WNL Musculoskeletal: Yes: WNL Edema: No Peripheral Pulses WNL: Yes Integumentary: Yes: WNL Neurological: Yes: WNL ...Motor Strength: WNL Psychiatric: Yes: WNL Labs: CBC, BMP 09/07/18 05:30 09/07/18 05:30 INR, PTT INR 1.54 (0.83-1.09) H 09/03/18 10:35 Assessment/Plan d/c in am had p/t already rufusing rehab vss hr better will give scrips in am and educate why betablockers changed dose
--- NOTE | 2018-09-07 11:09 | PN ---
Progress Note, Physician History of Present Illness: No complaits Was told by Dr. Shah to plan for d/c on [facility] Tele: AFib with 2.08 sec pauses - Current Medication List Current Medications: Active Medications Dabigatran (Pradaxa -) 150 mg PO BID [facility] Last Admin: 09/07/18 09:40 Dose: 150 mg Diltiazem HCl (Cardizem Cd -) 240 mg PO DAILY [facility] Last Admin: 09/07/18 09:40 Dose: 240 mg Finasteride (Proscar -) 5 mg PO DAILY [facility] Last Admin: 09/07/18 09:40 Dose: 5 mg Hydroxyurea (Hydrea -) 500 mg PO DAILY [facility] Last Admin: 09/07/18 09:41 Dose: 500 mg Metoprolol Tartrate (Lopressor -) 100 mg PO BID [facility] Last Admin: 09/07/18 09:40 Dose: 100 mg Pantoprazole Sodium (Protonix -) 40 mg PO DAILY [facility] Last Admin: 09/07/18 09:40 Dose: 40 mg Primidone (Mysoline -) 250 mg PO TID [facility] Last Admin: 09/07/18 05:03 Dose: 250 mg Sertraline HCl (Zoloft -) 50 mg PO DAILY [facility] Last Admin: 09/07/18 09:40 Dose: 50 mg Tamsulosin HCl (Flomax -) 0.4 mg PO DAILY@0830 [facility] Last Admin: 09/07/18 09:40 Dose: 0.4 mg - Objective Vital Signs: Vital Signs Temperature 98 F 09/07/18 09:00 Pulse Rate 68 09/07/18 09:00 Respiratory Rate 18 09/07/18 09:00 Blood Pressure 128/80 09/07/18 09:00 O2 Sat by Pulse Oximetry (%) 98 09/06/18 20:37 Constitutional: Yes: No Distress, Calm Cardiovascular: Yes: Pulse Irregular Respiratory: Yes: CTA Bilaterally Edema: No Labs: CBC, BMP 09/07/18 05:30 09/07/18 05:30 INR, PTT INR 1.54 (0.83-1.09) H 09/03/18 10:35 Assessment/Plan IMP: 1. Permanent AF on AC stable 2. Generalized weakness, nonspecific 3. Palpitations. 4. Mildly elevated BNP, Euvolemic. Creat stable. No further diuretic recommended at this time. 5. Echo shows nl LV function, mod MR. 6. Pharma MIBI with normal perfusion. LVEf 62% REC: 1. AF rate controlled on telemetry 2. Continue AC, on Dabigatran 150mg BID
[2018-09-07 12:09] LABS: ANISOCYTOSIS 1+; MACROCYTOSIS 1+; PLATELET ESTIMATE DECREASED; TARGET CELLS 1+
[2018-09-08] MEDS: PRIMIDONE 250 MG TABLET PO SCH ×2 (05:07→13:56)
[2018-09-08 05:10] VITALS: TEMP 97.8
--- NOTE | 2018-09-08 09:33 | PN ---
Progress Note, Physician Chief Complaint: eating breakfast No new complaints: denies chest pain, SOB, dizziness. Has not felt palpitations. The generalized weakness seems to have subsided. His stress test Saturday was normal. History of Present Illness: TELE: AF with average rate in the 60s. Bradycardic at times while sleeping. No pauses > 3 seconds. - Current Medication List Current Medications: Active Medications Dabigatran (Pradaxa -) 150 mg PO BID [facility] Last Admin: 09/07/18 21:36 Dose: 150 mg Diltiazem HCl (Cardizem Cd -) 240 mg PO DAILY [facility] Last Admin: 09/07/18 09:40 Dose: 240 mg Finasteride (Proscar -) 5 mg PO DAILY [facility] Last Admin: 09/07/18 09:40 Dose: 5 mg Hydroxyurea (Hydrea -) 500 mg PO DAILY [facility] Last Admin: 09/07/18 09:41 Dose: 500 mg Metoprolol Tartrate (Lopressor -) 100 mg PO BID [facility] Last Admin: 09/07/18 21:36 Dose: 100 mg Pantoprazole Sodium (Protonix -) 40 mg PO DAILY [facility] Last Admin: 09/07/18 09:40 Dose: 40 mg Primidone (Mysoline -) 250 mg PO TID [facility] Last Admin: 09/08/18 05:07 Dose: 250 mg Sertraline HCl (Zoloft -) 50 mg PO DAILY [facility] Last Admin: 09/07/18 09:40 Dose: 50 mg Tamsulosin HCl (Flomax -) 0.4 mg PO DAILY@0830 [facility] Last Admin: 09/07/18 09:40 Dose: 0.4 mg - Objective Vital Signs: Vital Signs Temperature 97.8 F 09/08/18 05:09 Pulse Rate 75 09/08/18 05:09 Respiratory Rate 18 09/08/18 05:09 Blood Pressure 144/70 09/08/18 05:09 O2 Sat by Pulse Oximetry (%) 97 09/07/18 20:33 Constitutional: Yes: No Distress, Calm Eyes: Yes: Conjunctiva Clear Cardiovascular: Yes: Pulse Irregular Respiratory: Yes: CTA Bilaterally (no wheezing or rales) Gastrointestinal: Yes: Soft Edema: No Neurological: Yes: Alert, Oriented ...Motor Strength: WNL Labs: CBC, BMP 09/07/18 05:30 09/07/18 05:30 INR, PTT INR 1.54 (0.83-1.09) H 09/03/18 10:35 Laboratory Tests 09/07/18 09/07/18 05:30 05:30 WBC 4.4 Hgb 10.1 L Plt Count 120 L Sodium 138 Potassium 4.2 Creatinine 0.7 - ....Imaging EKG: Image Reviewed Problem List - Problems (1) Weakness Code(s): R53.1 - WEAKNESS (2) Atrial fibrillation Code(s): I48.91 - UNSPECIFIED ATRIAL FIBRILLATION Qualifiers: Atrial fibrillation type: persistent Qualified Code(s): I48.1 - Persistent atrial fibrillation (3) Palpitations Code(s): R00.2 - PALPITATIONS Assessment/Plan IMP: 1. Permanent AF on AC stable 2. Generalized weakness, nonspecific 3. Palpitations. 4. Mildly elevated BNP, Euvolemic. Creat stable. No further diuretic recommended at this time. 5. Echo shows nl LV function, mod MR. 6. Pharma MIBI with normal perfusion. LVEf 62% REC: 1. AF rate controlled on telemetry, metoprolol adjusted. 2. Continue AC, on Dabigatran 150mg BID 3. Dispo: ok for discharge from CV standpoint. Recommend cardiology f/u as per Dr. Héctor Shah in about 1-2 weeks. A future 24 Hr Holter would be useful as outpatient. D/C Telemetry
[2018-09-08] MEDS: TAMSULOSIN HCL 0.4 MG CAP PO SCH (10:17)
[2018-09-08] MEDS: PANTOPRAZOLE 40 MG TABLET (FP) PO SCH (10:17)
[2018-09-08] MEDS: METOPROLOL TARTRATE 50 MG TABLET (FP) PO SCH (10:17)
[2018-09-08] MEDS: FINASTERIDE 5 MG TABLET (FP) PO SCH (10:17)
[2018-09-08] MEDS: SERTRALINE HCL 50 MG TABLET (FP) PO SCH (10:18)
[2018-09-08] MEDS: HYDROXYUREA 500 MG CAPSULE PO SCH (10:18)
[2018-09-08] MEDS: DABIGATRAN ETEXILATE MESYLATE 150 MG CAPSULE PO SCH (10:18)
[2018-09-08 10:24] VITALS: BP 149/74; PULSE 93
--- NOTE | 2018-09-08 12:54 | DS ---
Physical Examination Vital Signs: Vital Signs Temperature 97.8 F 09/08/18 10:00 Pulse Rate 93 H 09/08/18 10:00 Respiratory Rate 18 09/08/18 10:00 Blood Pressure 149/74 09/08/18 10:00 O2 Sat by Pulse Oximetry (%) 97 09/07/18 20:33 Constitutional: Yes: Well Nourished Eyes: Yes: WNL HENT: Yes: WNL Neck: Yes: WNL Cardiovascular: Yes: WNL, Pulse Irregular Respiratory: Yes: WNL Gastrointestinal: Yes: WNL ...Rectal Exam: Yes: Deferred Renal/: Yes: WNL Breast(s): Yes: WNL Musculoskeletal: Yes: WNL Extremities: Yes: WNL Edema: Yes Edema: LLE: 1+, RLE: 1+ Peripheral Pulses WNL: Yes Integumentary: Yes: WNL Neurological: Yes: WNL ...Motor Strength: WNL Psychiatric: Yes: WNL Labs: CBC, BMP 09/07/18 05:30 09/07/18 05:30 Discharge Summary Reason For Visit: WEAKNESS Current Active Problems Atrial fibrillation (Acute) Palpitations (Acute) Weakness (Acute) Condition: Stable - Instructions Diet, Activity, Other Instructions: appt w 1200 n00n 18 of september d/c home today prescriptions will be given to pt card meds changes to control hr better Disposition: HOME - Home Medications Comprehensive Discharge Medication List: Ambulatory Orders Omeprazole 20 mg PO DAILY 08/31/11 clonazePAM [Klonopin -] 0.5 mg PO BID 12/05/12 Metoprolol Tartrate 75 mg PO BID 06/11/14 Primidone 250 mg PO BID 06/11/14 Tamsulosin HCl [Flomax -] 0.4 mg PO DAILY 06/11/14 Vitamin B Complex [B Complex] 1 each PO DAILY 06/11/14 Aspirin [Aspirin EC] 81 mg PO DAILY 12/29/15 Dabigatran Etexilate Mesylate [Pradaxa -] 150 mg PO BID cap 01/12/16 Diltiazem Cd [Cardizem Cd -] 240 mg PO DAILY cap.cd.24h 01/12/16 Hydroxyurea 500 mg PO BID 09/17/17 Sertraline HCl [Zoloft -] 50 mg PO DAILY 09/17/17 Ubidecarenone [Coq-10] 100 mg PO DAILY 09/17/17
== END 2018-09-08 14:53 | disposition home health service (06) | DRG 308 ==
LOC: JER 08:35 → JERBED 11:44 → J4W 19:32 → OBSVTOIN 09-06 08:19
PROVIDERS: ADMIT Family Medicine; ATTEND Family Medicine
DX: I48.1 Persistent atrial fibrillation (principal); I50.33 Acute on chronic diastolic (congestive) heart failure; N40.0 Benign prostatic hyperplasia without lower urinary tract symptoms; Z85.828 Personal history of other malignant neoplasm of skin; K21.9 Gastro-esophageal reflux disease without esophagitis; Z87.891 Personal history of nicotine dependence; D53.9 Nutritional anemia, unspecified; I34.0 Nonrheumatic mitral (valve) insufficiency; R53.1 Weakness; I11.0 Hypertensive heart disease with heart failure
CPT/HCPCS: 36415; 70450-TC; 71045-TC-FY; 78452-TC; 80048; 80053; 81003; 82550; 82607; 82728; 82746; 83010; 83540; 83550; 83615; 83735; 83880; 84443; 84484; 85025; 85044; 85610; 86850; 86900; 86901; 87086; 93005; 93010; 93017; 93306-TC; 97116-GP; 97161-GP; 99283-25; A9502; G0378; J2785; J7030; J8999

== ENCOUNTER 2019-03-24 07:01 | Day surgery (SDC) | payer BC ==
[2019-03-24 09:29] LABS: ALBUMIN 3.6 g/dl (3.4-5.0); BILIRUBIN,TOTAL 0.4 mg/dL (0.2-1); BLOOD UREA NITROGEN 21.1 mg/dL (7-18); CALCIUM 8.7 mg/dL (8.5-10.1); MAGNESIUM 2.7 mg/dL (1.8-2.4); POTASSIUM 4.5 mmol/L (3.5-5.1); TOT PROT 7.4 g/dl (6.4-8.2)
[2019-03-24 09:33] LABS: HEMATOCRIT 22.4 % (35.4-49); MCH 33.6 pg (25.7-33.7); MCHC 31.2 g/dl (32.0-35.9); MEAN CELL VOLUME 107.6 fl (80-96); MEAN PLT VOLUME 8.5 fl (7.5-11.1); PLATELET COUNT 170 K/MM3 (134-434); RBC 2.08 M/mm3 (4.00-5.60); RDW 28.9 % (11.9-15.9)
[2019-03-24 09:44] LABS: WHITE BLOOD COUNT 1.9 K/mm3 (4.0-10.0)
[2019-03-24 12:31] LABS: ANISOCYTOSIS 2+; MACROCYTOSIS 2+; PLATELET ESTIMATE NORMAL
--- NOTE | 2019-03-24 17:18 | HP ---
Admitting History and Physical - Past Medical History [employer]: Yes: Other (TREMOR ) Cardiovascular: Yes: AFIB, HTN Gastrointestinal: Yes: GERD Heme/Onc: Yes: Cancer (squamous cell skin), Myeloproliferative Synd Psych: Yes: Depression Musculoskeletal: Yes: Osteoarthritis Dermatology: Yes: Squamous Cell - Past Surgical History Past Surgical History: Yes: Carotid Endarterectomy, Hernia Repair (numerous skin sq cell ca exisions) - Advance Directives Advance Directives: Yes: Health Care Proxy - Smoking History Smoking history: Never smoked Have you smoked in the past 12 months: No Aproximately how many cigarettes per day: 0 If you are a former smoker, when did you quit?: 1960S - Alcohol/Substance Use Hx Alcohol Use: No History of Substance Use: reports: None - Social History ADL: Independent History of Recent Travel: No Home Medications - Allergies Allergies/Adverse Reactions: Allergies Allergy/AdvReac Type Severity Reaction Status Date / Time No Known Allergies Allergy Verified 09/17/17 19:05 - Home Medications Home Medications: Ambulatory Orders Omeprazole 20 mg PO DAILY 08/31/11 clonazePAM [Klonopin -] 0.5 mg PO BID 12/05/12 Metoprolol Tartrate 75 mg PO BID 06/11/14 Primidone 250 mg PO BID 06/11/14 Vitamin B Complex [B Complex] 1 each PO DAILY 06/11/14 Aspirin [Aspirin EC] 81 mg PO DAILY 12/29/15 Dabigatran Etexilate Mesylate [Pradaxa -] 150 mg PO BID cap 01/12/16 Diltiazem Cd [Cardizem Cd -] 240 mg PO DAILY cap.cd.24h 01/12/16 Ubidecarenone [Coq-10] 100 mg PO DAILY 09/17/17 Tadalafil [Cialis] 1 tab PO DAILY 01/14/19 Physical Examination Vital Signs: Vital Signs Temperature 97.3 F L 03/24/19 11:04 Pulse Rate 89 03/24/19 11:04 Respiratory Rate 20 03/24/19 11:04 Blood Pressure 104/54 L 03/24/19 11:04 O2 Sat by Pulse Oximetry (%) Labs: CBC, BMP 03/24/19 07:40 03/24/19 07:40 Assessment/Plan Patient sen and examined Admitted for transfusion Hx of myeloproiferative disorder - on hydrea Neutropenia Anemia Hx of multiple skin cancers S/P multiple MOHS procedures Last Vital Signs Temp Pulse Resp BP Pulse Ox 97.3 F L 89 20 104/54 L 03/24/19 11:04 03/24/19 11:04 03/24/19 11:04 03/24/19 11:04 BP 119/61 P 80 irregular RR-18 T-98.1 HEENT: [place], EOM Intact Oropharynx: No thrush, No mucositis Multiple cutaneous lesions face Cor: irregular Lungs: scattered rhonchi Abd: Soft, Normal bowel sounds, No organomegalylarge ventral hernia Ext:No significant edema Skin: cutaneous mets -face Impression: Anemia - for transfusion Hold hydrea and resume after 5 days on 1 tab per day.
[2019-03-24 19:16] VITALS: BP 108/66; PULSE 79; TEMP 98.2
[2019-03-24 20:03] LABS: BASO % 2.1 % (0-2.0); EOS % 4.6 % (0-4.5); HEMATOCRIT 27.5 % (35.4-49); HEMOGLOBIN 8.9 GM/dL (11.7-16.9); LYMPH % 37.9 % (8-40); MCH 32.5 pg (25.7-33.7); MCHC 32.4 g/dl (32.0-35.9); MEAN CELL VOLUME 100.4 fl (80-96); MEAN PLT VOLUME 8.5 fl (7.5-11.1); MONO % 27.8 % (3.8-10.2); NEUT % 27.6 % (42.8-82.8); PLATELET COUNT 156 K/MM3 (134-434); RBC 2.74 M/mm3 (4.00-5.60); RDW 26.7 % (11.9-15.9); WHITE BLOOD COUNT 4.1 K/mm3 (4.0-10.0)
[2019-03-24 20:21] LABS: ADD RBC MORPHOLOGY YES
[2019-03-24 23:46] LABS: PLATELET ESTIMATE NORMAL
[2019-03-24 23:59] LABS: ANISOCYTOSIS 1+; MACROCYTOSIS 1+
== END 2019-03-24 21:38 | disposition home or self-care (01) ==
LOC: J7W 07:01 → JONCBLOOD 07:01
PROVIDERS: ATTEND Internal Medicine Hematology & Oncology
PROC: 30233N1 Transfusion of Nonautologous Red Blood Cells into Peripheral Vein, Percutaneous Approach (ICD-10-PCS; principal; 2019-03-24)
DX: C94.6 Myelodysplastic disease, not elsewhere classified (principal); I48.91 Unspecified atrial fibrillation; Z79.01 Long term (current) use of anticoagulants; I10 Essential (primary) hypertension; C44.329 Squamous cell carcinoma of skin of other parts of face
CPT/HCPCS: 36415; 36430; 36511; 80053; 83735; 85025; 86850; 86900; 86901; 86922; P9038; P9058

== ENCOUNTER 2019-05-04 09:08 | Day surgery (SDC) | payer BC ==
[2019-05-04 11:00] LABS: ALBUMIN 3.4 g/dl (3.4-5.0); BILIRUBIN,TOTAL 0.4 mg/dL (0.2-1); BLOOD UREA NITROGEN 22.6 mg/dL (7-18); MAGNESIUM 2.4 mg/dL (1.8-2.4); POTASSIUM 4.3 mmol/L (3.5-5.1); TOT PROT 7.2 g/dl (6.4-8.2); URIC ACID 5.1 mg/dL (2.6-7.2)
[2019-05-04 11:03] LABS: HEMATOCRIT 20.6 % (35.4-49); MCH 33.4 pg (25.7-33.7); MCHC 32.6 g/dl (32.0-35.9); MEAN CELL VOLUME 102.5 fl (80-96); MEAN PLT VOLUME 9.3 fl (7.5-11.1); PLATELET COUNT 240 K/MM3 (134-434); RBC 2.01 M/mm3 (4.00-5.60); RDW 26.8 % (11.9-15.9); WHITE BLOOD COUNT 2.6 K/mm3 (4.0-10.0)
[2019-05-04 11:22] LABS: HEMOGLOBIN 6.7 GM/dL (11.7-16.9)
[2019-05-04] MEDS ORDERED: POTASSIUM CHLORIDE TABS 20 MEQ TABLET.ER (FP) PO ONE (15:00)
[2019-05-04] MEDS ORDERED: FUROSEMIDE 40 MG TABLET (FP) PO ONE (15:00)
[2019-05-04] MEDS ORDERED: BACITRACIN 15 GM TUBE TOPICAL OINTMENT TP SCH (15:15)
[2019-05-04 15:36] LABS: ANISOCYTOSIS 2+; MACROCYTOSIS 0; PLATELET ESTIMATE NORMAL
[2019-05-04 18:41] VITALS: BP 139/64; PULSE 82; TEMP 97.7
[2019-05-04 18:57] LABS: BASO % 1.4 % (0-2.0); EOS % 4.8 % (0-4.5); HEMATOCRIT 20.6 % (35.4-49); LYMPH % 36.9 % (8-40); MCH 31.9 pg (25.7-33.7); MCHC 32.1 g/dl (32.0-35.9); MEAN CELL VOLUME 99.3 fl (80-96); MEAN PLT VOLUME 9.3 fl (7.5-11.1); MONO % 34.1 % (3.8-10.2); NEUT % 22.8 % (42.8-82.8); PLATELET COUNT 177 K/MM3 (134-434); RBC 2.08 M/mm3 (4.00-5.60); RDW 23.5 % (11.9-15.9); WHITE BLOOD COUNT 3.3 K/mm3 (4.0-10.0)
[2019-05-04 19:04] LABS: HEMOGLOBIN 6.6 GM/dL (11.7-16.9)
[2019-05-04 19:38] LABS: ANISOCYTOSIS 3+; PLATELET ESTIMATE ADEQUATE
[2019-05-04] MEDS ORDERED: HYDROGEN PEROXIDE 473 ML TP SCH (22:00)
== END 2019-05-04 19:00 | disposition home or self-care (01) ==
LOC: J7W 09:08 → JONCBLOOD 09:08
PROVIDERS: ATTEND Internal Medicine Hematology & Oncology
PROC: 30233N1 Transfusion of Nonautologous Red Blood Cells into Peripheral Vein, Percutaneous Approach (ICD-10-PCS; principal; 2019-05-04)
DX: D64.9 Anemia, unspecified (principal)
CPT/HCPCS: 36415; 36430; 36511; 80053; 83615; 83735; 84550; 85025; 86850; 86900; 86901; 86922; P9038; P9058

== ENCOUNTER 2019-06-11 10:11 | Day surgery (SDC) | payer BC ==
[2019-06-11] MEDS ORDERED: FUROSEMIDE 20 MG TABLET (FP) PO ONE ×2 (10:30→16:45)
[2019-06-11 12:02] LABS: HEMATOCRIT 22.1 % (35.4-49); HEMOGLOBIN 7.2 GM/dL (11.7-16.9); LYMPH % 36.3 % (8-40); MCH 32.6 pg (25.7-33.7); MCHC 32.6 g/dl (32.0-35.9); MEAN CELL VOLUME 99.9 fl (80-96); MEAN PLT VOLUME 9.5 fl (7.5-11.1); MONO % 25.8 % (3.8-10.2); NEUT % 33.9 % (42.8-82.8); PLATELET COUNT 262 K/MM3 (134-434); RBC 2.21 M/mm3 (4.00-5.60); RDW 24.4 % (11.9-15.9); WHITE BLOOD COUNT 3.9 K/mm3 (4.0-10.0)
[2019-06-11 12:43] LABS: ALBUMIN 3.4 g/dl (3.4-5.0); BILIRUBIN,TOTAL 0.4 mg/dL (0.2-1); BLOOD UREA NITROGEN 17.9 mg/dL (7-18); CALCIUM 8.4 mg/dL (8.5-10.1); CREATININE 0.8 mg/dL (0.55-1.3); POTASSIUM 4.9 mmol/L (3.5-5.1); TOT PROT 7.3 g/dl (6.4-8.2)
[2019-06-11 13:38] LABS: ANISOCYTOSIS 3+; OVALOCYTE FEW; PLATELET ESTIMATE ADEQUATE; TARGET CELLS FEW
[2019-06-11] MEDS ORDERED: SERTRALINE HCL 50 MG TABLET (FP) PO SCH (18:30)
[2019-06-11] MEDS: PRIMIDONE 250 MG TABLET PO SCH (21:27)
[2019-06-11] MEDS ORDERED: DABIGATRAN ETEXILATE MESYLATE 150 MG CAPSULE PO SCH (22:00)
[2019-06-11] MEDS ORDERED: HYDROXYUREA 500 MG CAPSULE PO SCH (22:00)
[2019-06-11] MEDS ORDERED: METOPROLOL TARTRATE 50 MG TABLET (FP) PO SCH (22:00)
[2019-06-11 23:55] LABS: BASO % 1.6 % (0-2.0); EOS % 5.1 % (0-4.5); HEMATOCRIT 26.7 % (35.4-49); LYMPH % 18.5 % (8-40); MCH 31.5 pg (25.7-33.7); MCHC 33.7 g/dl (32.0-35.9); MEAN CELL VOLUME 93.5 fl (80-96); MEAN PLT VOLUME 9.2 fl (7.5-11.1); MONO % 30.1 % (3.8-10.2); NEUT % 44.7 % (42.8-82.8); PLATELET COUNT 247 K/MM3 (134-434); RBC 2.85 M/mm3 (4.00-5.60); RDW 24.3 % (11.9-15.9); WHITE BLOOD COUNT 6.5 K/mm3 (4.0-10.0)
[2019-06-12 02:46] LABS: ANISOCYTOSIS 2+; MACROCYTOSIS 1+; PLATELET ESTIMATE NORMAL; ROULEAU 1+
[2019-06-12] MEDS: PRIMIDONE 250 MG TABLET PO SCH (05:43)
[2019-06-12 07:41] LABS: BASO % 1.9 % (0-2.0); EOS % 4.8 % (0-4.5); HEMATOCRIT 26.9 % (35.4-49); HEMOGLOBIN 9.2 GM/dL (11.7-16.9); LYMPH % 21.9 % (8-40); MCH 31.9 pg (25.7-33.7); MCHC 34.4 g/dl (32.0-35.9); MEAN CELL VOLUME 92.8 fl (80-96); MEAN PLT VOLUME 9.1 fl (7.5-11.1); MONO % 29.5 % (3.8-10.2); NEUT % 41.9 % (42.8-82.8); PLATELET COUNT 247 K/MM3 (134-434); RDW 24.9 % (11.9-15.9)
[2019-06-12 07:52] VITALS: BP 141/73; PULSE 100; TEMP 97.4
[2019-06-12 08:15] LABS: ALBUMIN 3.1 g/dl (3.4-5.0); BILIRUBIN,TOTAL 1.1 mg/dL (0.2-1); BLOOD UREA NITROGEN 16.4 mg/dL (7-18); CALCIUM 8.2 mg/dL (8.5-10.1); CREATININE 0.8 mg/dL (0.55-1.3); POTASSIUM 4.4 mmol/L (3.5-5.1); TOT PROT 6.6 g/dl (6.4-8.2)
[2019-06-12 09:52] LABS: ANISOCYTOSIS 2+; MACROCYTOSIS 1+; PLATELET ESTIMATE NORMAL; TARGET CELLS 1+
== END 2019-06-12 08:48 | disposition home or self-care (01) ==
LOC: JONCBLOOD 10:11 → J7W 10:11 → JONCBLOOD 06-12 08:48
PROVIDERS: ATTEND Internal Medicine Hematology & Oncology
PROC: 30233N1 Transfusion of Nonautologous Red Blood Cells into Peripheral Vein, Percutaneous Approach (ICD-10-PCS; principal; 2019-06-11)
DX: D64.9 Anemia, unspecified (principal)
CPT/HCPCS: 36415; 36430; 36511; 80053; 85025; 86850; 86900; 86901; 86922; J8999; P9038; P9058

== ENCOUNTER 2020-06-13 07:07 | Day surgery (SDC) | payer BC ==
[2020-06-13] MEDS ORDERED: SODIUM CHLORIDE 250 ML IV ONE (09:00)
[2020-06-13] MEDS ORDERED: diphenhydrAMINE HCL 12.5 MG/5 ML UNIT-DOSE CUPS PO ONE (10:00)
[2020-06-13] MEDS ORDERED: DEXAMETHASONE SODIUM PHOSPHATE 4 MG, ONDANSETRON INJECTION 8 MG in SODIUM CHLORIDE 100 ML IVPB ONE (10:00)
[2020-06-13] MEDS ORDERED: CEMIPLIMAB RWLC IV ONE (10:30)
[2020-06-13] MEDS ORDERED: SODIUM CHLORIDE IV ONE (10:30)
[2020-06-13 13:51] LABS: BASO % 1.3 % (0-2.0); EOS % 5.3 % (0-4.5); HEMOGLOBIN 9.1 GM/dL (11.7-16.9); LYMPH % 28.8 % (8-40); MCH 31.1 pg (25.7-33.7); MCHC 32.6 g/dl (32.0-35.9); MEAN CELL VOLUME 95.4 fl (80-96); MONO % 25.2 % (3.8-10.2); NEUT % 39.4 % (42.8-82.8); RBC 2.93 M/mm3 (4.00-5.60); RDW 24.6 % (11.9-15.9)
[2020-06-13 13:53] LABS: PLATELET COUNT 321 K/MM3 (134-434); WHITE BLOOD COUNT 11.7 K/mm3 (4.0-10.0)
[2020-06-13 14:13] LABS: POTASSIUM 4.7 mmol/L (3.5-5.1)
[2020-06-13 14:15] LABS: MAGNESIUM 2.3 mg/dL (1.8-2.4)
[2020-06-13 14:16] LABS: BLOOD UREA NITROGEN 30.8 mg/dL (7-18)
[2020-06-13 14:19] LABS: BILIRUBIN,DIRECT 0.1 mg/dL (0.0-0.2)
[2020-06-13 14:20] LABS: TOT PROT 8.1 g/dl (6.4-8.2)
[2020-06-13 14:21] LABS: BILIRUBIN,TOTAL 0.2 mg/dL (0.2-1)
[2020-06-13 14:37] LABS: ANISOCYTOSIS 2+; MACROCYTOSIS 0; PLATELET ESTIMATE NORMAL; TARGET CELLS 1+
[2020-06-13 17:37] VITALS: TEMP 98.2
[2020-06-13 17:41] VITALS: BP 128/67; PULSE 81
== END 2020-06-13 17:45 | disposition home or self-care (01) ==
LOC: JONCCHEMO 07:07
PROVIDERS: ATTEND Internal Medicine Hematology & Oncology
DX: Z51.11 Encounter for antineoplastic chemotherapy (principal); C44.92 Squamous cell carcinoma of skin, unspecified
CPT/HCPCS: 36415; 80048; 80076; 82150; 83690; 83735; 85025; 96361; 96367; 96413; J9119

== ENCOUNTER 2020-07-04 06:58 | Day surgery (SDC) | payer BC ==
[2020-07-04] MEDS ORDERED: SODIUM CHLORIDE 250 ML IV ONE (09:00)
[2020-07-04] MEDS ORDERED: diphenhydrAMINE HCL 12.5 MG/5 ML UNIT-DOSE CUPS PO ONE (09:30)
[2020-07-04] MEDS ORDERED: DEXAMETHASONE SODIUM PHOSPHATE 4 MG, ONDANSETRON INJECTION 8 MG in SODIUM CHLORIDE 100 ML IVPB ONE (09:30)
[2020-07-04] MEDS ORDERED: SODIUM CHLORIDE IV ONE (10:00)
[2020-07-04] MEDS ORDERED: CEMIPLIMAB RWLC IV ONE (10:00)
[2020-07-04 13:51] LABS: HEMATOCRIT 26.9 % (35.4-49); HEMOGLOBIN 8.5 GM/dL (11.7-16.9); MCH 30.1 pg (25.7-33.7); MCHC 31.5 g/dl (32.0-35.9); MEAN CELL VOLUME 95.5 fl (80-96); MEAN PLT VOLUME 10.2 fl (7.5-11.1); PLATELET COUNT 691 K/MM3 (134-434); RBC 2.81 M/mm3 (4.00-5.60); RDW 24.2 % (11.9-15.9); WHITE BLOOD COUNT 12.7 K/mm3 (4.0-10.0)
[2020-07-04 14:17] LABS: POTASSIUM 5.7 mmol/L (3.5-5.1)
[2020-07-04 14:20] LABS: ALBUMIN 3.7 g/dl (3.4-5.0); CALCIUM 9.4 mg/dL (8.5-10.1)
[2020-07-04 14:21] LABS: BLOOD UREA NITROGEN 34.6 mg/dL (7-18); MAGNESIUM 2.4 mg/dL (1.8-2.4)
[2020-07-04 14:23] LABS: BILIRUBIN,DIRECT 0.2 mg/dL (0.0-0.2); CREATININE 1.2 mg/dL (0.55-1.3)
[2020-07-04 14:25] LABS: BILIRUBIN,TOTAL 0.3 mg/dL (0.2-1)
[2020-07-04 15:06] LABS: ANISOCYTOSIS 1+; MACROCYTOSIS 0; PLATELET ESTIMATE INCREASED; TARGET CELLS 1+
[2020-07-04 18:30] VITALS: BP 119/71; PULSE 85
[2020-07-04 18:32] VITALS: TEMP 98.1
== END 2020-07-04 17:10 | disposition home or self-care (01) ==
LOC: JONCCHEMO 06:58
PROVIDERS: ATTEND Internal Medicine Hematology & Oncology
DX: Z51.11 Encounter for antineoplastic chemotherapy (principal); C44.92 Squamous cell carcinoma of skin, unspecified
CPT/HCPCS: 36415; 80048; 80076; 82150; 83690; 83735; 84439; 84443; 85025; 96361; 96367; 96413; J9119

== ENCOUNTER 2020-07-25 06:24 | Day surgery (SDC) | payer BC ==
[2020-07-25] MEDS ORDERED: SODIUM CHLORIDE 250 ML IV ONE (09:00)
[2020-07-25] MEDS ORDERED: diphenhydrAMINE HCL 12.5 MG/5 ML UNIT-DOSE CUPS PO ONE (10:00)
[2020-07-25] MEDS ORDERED: DEXAMETHASONE SODIUM PHOSPHATE 4 MG, ONDANSETRON INJECTION 8 MG in SODIUM CHLORIDE 100 ML IVPB ONE (10:00)
[2020-07-25] MEDS ORDERED: CEMIPLIMAB RWLC IV ONE (10:30)
[2020-07-25] MEDS ORDERED: SODIUM CHLORIDE IV ONE (10:30)
[2020-07-25 12:50] LABS: BASO % 2.3 % (0-2.0); EOS % 5.8 % (0-4.5); HEMATOCRIT 25.5 % (35.4-49); HEMOGLOBIN 7.9 GM/dL (11.7-16.9); LYMPH % 16.8 % (8-40); MCH 30.2 pg (25.7-33.7); MCHC 31.1 g/dl (32.0-35.9); MEAN CELL VOLUME 97.2 fl (80-96); MEAN PLT VOLUME 9.9 fl (7.5-11.1); MONO % 24.1 % (3.8-10.2); PLATELET COUNT 1031 K/MM3 (134-434); RBC 2.62 M/mm3 (4.00-5.60); RDW 26.5 % (11.9-15.9)
[2020-07-25 13:06] LABS: POTASSIUM 5.3 mmol/L (3.5-5.1)
[2020-07-25 13:08] LABS: CALCIUM 9.7 mg/dL (8.5-10.1)
[2020-07-25 13:09] LABS: ALBUMIN 3.9 g/dl (3.4-5.0); MAGNESIUM 2.5 mg/dL (1.8-2.4)
[2020-07-25 13:11] LABS: CREATININE 1.2 mg/dL (0.55-1.3)
[2020-07-25 13:12] LABS: BILIRUBIN,DIRECT 0.2 mg/dL (0.0-0.2)
[2020-07-25 13:13] LABS: BILIRUBIN,TOTAL 0.4 mg/dL (0.2-1); TOT PROT 8.2 g/dl (6.4-8.2)
[2020-07-25 13:59] LABS: ANISOCYTOSIS 1+; MACROCYTOSIS 1+; OVALOCYTE 1+; PLATELET ESTIMATE INCREASED; TARGET CELLS 1+
[2020-07-25 16:30] VITALS: BP 133/65; PULSE 85; TEMP 98.2
== END 2020-07-25 16:15 | disposition home or self-care (01) ==
LOC: JONCCHEMO 06:24
PROVIDERS: ATTEND Internal Medicine Hematology & Oncology
DX: Z51.11 Encounter for antineoplastic chemotherapy (principal); C94.6 Myelodysplastic disease, not elsewhere classified; C44.92 Squamous cell carcinoma of skin, unspecified
CPT/HCPCS: 36415; 80048; 80076; 83735; 84132; 85025; 96361; 96367; 96413; J9119

== ENCOUNTER 2020-08-08 06:15 | Day surgery (SDC) | payer BC ==
[2020-08-08 09:28] LABS: BASO % 2.1 % (0-2.0); EOS % 7.6 % (0-4.5); HEMATOCRIT 21.8 % (35.4-49); LYMPH % 12.8 % (8-40); MCH 29.1 pg (25.7-33.7); MCHC 30.7 g/dl (32.0-35.9); MEAN CELL VOLUME 94.7 fl (80-96); MEAN PLT VOLUME 9.9 fl (7.5-11.1); MONO % 13.2 % (3.8-10.2); NEUT % 64.3 % (42.8-82.8); RDW 27.7 % (11.9-15.9)
[2020-08-08 09:39] LABS: PLATELET COUNT 1731 K/MM3 (134-434)
[2020-08-08 09:40] LABS: WHITE BLOOD COUNT 27.4 K/mm3 (4.0-10.0)
[2020-08-08 09:41] LABS: HEMOGLOBIN 6.7 GM/dL (11.7-16.9)
[2020-08-08] MEDS ORDERED: FUROSEMIDE 20 MG TABLET (FP) PO ONE (10:00)
[2020-08-08 10:57] LABS: ANISOCYTOSIS 2+; MACROCYTOSIS 2+; PLATELET ESTIMATE INCREASED; TARGET CELLS 1+
[2020-08-08 19:20] LABS: EOS % 5.8 % (0-4.5); HEMATOCRIT 25.8 % (35.4-49); LYMPH % 13.8 % (8-40); MCH 28.2 pg (25.7-33.7); MCHC 30.8 g/dl (32.0-35.9); MEAN CELL VOLUME 91.5 fl (80-96); MEAN PLT VOLUME 9.9 fl (7.5-11.1); MONO % 14.3 % (3.8-10.2); NEUT % 64.1 % (42.8-82.8); RBC 2.82 M/mm3 (4.00-5.60); RDW 26.7 % (11.9-15.9); WHITE BLOOD COUNT 23.4 K/mm3 (4.0-10.0)
[2020-08-08 19:25] LABS: PLATELET COUNT 1603 K/MM3 (134-434)
[2020-08-08 19:30] LABS: POTASSIUM 5.8 mmol/L (3.5-5.1)
[2020-08-08 19:35] LABS: CALCIUM 9.5 mg/dL (8.5-10.1)
[2020-08-08 19:36] LABS: ALBUMIN 3.8 g/dl (3.4-5.0); BLOOD UREA NITROGEN 30.8 mg/dL (7-18)
[2020-08-08 19:41] LABS: TOT PROT 7.7 g/dl (6.4-8.2)
[2020-08-08 21:27] LABS: ANISOCYTOSIS 1+; MACROCYTOSIS 1+; OVALOCYTE 1+; PLATELET ESTIMATE INCREASED
[2020-08-09 06:57] VITALS: BP 108/46; PULSE 70; TEMP 97.9
== END 2020-08-08 18:30 | disposition home or self-care (01) ==
LOC: JONCBLOOD 06:15
PROVIDERS: ATTEND Internal Medicine Hematology & Oncology
PROC: 30233N1 Transfusion of Nonautologous Red Blood Cells into Peripheral Vein, Percutaneous Approach (ICD-10-PCS; principal; 2020-08-08)
DX: D46.9 Myelodysplastic syndrome, unspecified (principal); D47.3 Essential (hemorrhagic) thrombocythemia; I48.91 Unspecified atrial fibrillation; C44.92 Squamous cell carcinoma of skin, unspecified
CPT/HCPCS: 36415; 36430; 36511; 80053; 85025; 86850; 86900; 86901; 86922; P9016; P9058

== ENCOUNTER 2020-08-16 06:40 | Day surgery (SDC) | payer BC ==
[2020-08-16] MEDS ORDERED: SODIUM CHLORIDE 250 ML IV ONE (09:00)
[2020-08-16] MEDS ORDERED: diphenhydrAMINE HCL 12.5 MG/5 ML UNIT-DOSE CUPS PO ONE (09:30)
[2020-08-16] MEDS ORDERED: DEXAMETHASONE SODIUM PHOSPHATE 4 MG, ONDANSETRON INJECTION 8 MG in SODIUM CHLORIDE 100 ML IVPB ONE (09:30)
[2020-08-16] MEDS ORDERED: CEMIPLIMAB RWLC IV ONE (10:00)
[2020-08-16] MEDS ORDERED: SODIUM CHLORIDE IV ONE (10:00)
[2020-08-16 16:25] VITALS: TEMP 98.3
[2020-08-16 16:49] VITALS: BP 121/55; PULSE 70
== END 2020-08-16 16:50 | disposition home or self-care (01) ==
LOC: JONCCHEMO 06:40
PROVIDERS: ATTEND Internal Medicine Hematology & Oncology
PROC: 3E0337Z Introduction of Electrolytic and Water Balance Substance into Peripheral Vein, Percutaneous Approach (ICD-10-PCS; principal; 2020-08-16)
PROC: 3E0333Z Introduction of Anti-inflammatory into Peripheral Vein, Percutaneous Approach (ICD-10-PCS; 2020-08-16)
PROC: 3E03305 Introduction of Other Antineoplastic into Peripheral Vein, Percutaneous Approach (ICD-10-PCS; 2020-08-16)
DX: Z51.11 Encounter for antineoplastic chemotherapy (principal); C44.92 Squamous cell carcinoma of skin, unspecified
CPT/HCPCS: 96361; 96367; 96413; J9119

== ENCOUNTER 2020-08-22 07:12 | Day surgery (SDC) | payer BC ==
[2020-08-22 09:02] LABS: HEMATOCRIT 22.7 % (35.4-49); HEMOGLOBIN 7.2 GM/dL (11.7-16.9); MCH 29.3 pg (25.7-33.7); MCHC 31.7 g/dl (32.0-35.9); MEAN CELL VOLUME 92.1 fl (80-96); MEAN PLT VOLUME 10.1 fl (7.5-11.1); PLATELET COUNT 1080 K/MM3 (134-434); RBC 2.46 M/mm3 (4.00-5.60); RDW 25.5 % (11.9-15.9)
[2020-08-22 09:06] LABS: WHITE BLOOD COUNT 21.3 K/mm3 (4.0-10.0)
[2020-08-22] MEDS ORDERED: FUROSEMIDE 20 MG TABLET (FP) PO ONE (09:15)
[2020-08-22 09:20] LABS: BLOOD UREA NITROGEN 31.8 mg/dL (7-18); CALCIUM 9.2 mg/dL (8.5-10.1)
[2020-08-22 09:21] LABS: ALBUMIN 3.8 g/dl (3.4-5.0); MAGNESIUM 2.4 mg/dL (1.8-2.4)
[2020-08-22 09:24] LABS: CREATININE 1.2 mg/dL (0.55-1.3)
[2020-08-22 09:25] LABS: BILIRUBIN,TOTAL 0.3 mg/dL (0.2-1); TOT PROT 7.8 g/dl (6.4-8.2)
[2020-08-22 10:16] LABS: ANISOCYTOSIS 1+; MACROCYTOSIS 1+; PLATELET ESTIMATE INCREASED
[2020-08-22 18:23] VITALS: BP 138/77; PULSE 90; TEMP 98.2
[2020-08-22 18:43] LABS: HEMATOCRIT 27.5 % (35.4-49); HEMOGLOBIN 8.8 GM/dL (11.7-16.9); MCH 29.3 pg (25.7-33.7); MCHC 32.2 g/dl (32.0-35.9); MEAN PLT VOLUME 10.5 fl (7.5-11.1); PLATELET COUNT 971 K/MM3 (134-434); RBC 3.02 M/mm3 (4.00-5.60); RDW 20.4 % (11.9-15.9)
== END 2020-08-22 18:24 | disposition home or self-care (01) ==
LOC: JONCBLOOD 07:12
PROVIDERS: ATTEND Internal Medicine Hematology & Oncology
PROC: 30233N1 Transfusion of Nonautologous Red Blood Cells into Peripheral Vein, Percutaneous Approach (ICD-10-PCS; principal; 2020-08-22)
DX: C94.6 Myelodysplastic disease, not elsewhere classified (principal)
CPT/HCPCS: 36415; 36430; 80053; 83735; 85025; 85027; 86850; 86900; 86901; 86922; P9058

== ENCOUNTER 2020-09-05 06:36 | Day surgery (SDC) | payer BC ==
[2020-09-05] MEDS ORDERED: SODIUM CHLORIDE 250 ML IV ONE (09:00)
[2020-09-05] MEDS ORDERED: DEXAMETHASONE SODIUM PHOSPHATE 4 MG, ONDANSETRON INJECTION 8 MG in SODIUM CHLORIDE 100 ML IVPB ONE (09:30)
[2020-09-05] MEDS ORDERED: diphenhydrAMINE HCL 12.5 MG/5 ML UNIT-DOSE CUPS PO ONE (09:30)
[2020-09-05] MEDS ORDERED: SODIUM CHLORIDE IV ONE (10:00)
[2020-09-05] MEDS ORDERED: CEMIPLIMAB RWLC IV ONE (10:00)
[2020-09-05 16:31] VITALS: TEMP 98.4
[2020-09-05 17:13] VITALS: BP 125/63; PULSE 76
== END 2020-09-05 17:10 | disposition home or self-care (01) ==
LOC: JONCCHEMO 06:36
PROVIDERS: ATTEND Internal Medicine Hematology & Oncology
DX: Z51.11 Encounter for antineoplastic chemotherapy (principal); C94.6 Myelodysplastic disease, not elsewhere classified
CPT/HCPCS: 96361; 96367; 96413; J9119

== ENCOUNTER 2020-09-12 07:02 | Day surgery (SDC) | payer BC, OTHER ==
[2020-09-12 08:49] LABS: HEMATOCRIT 21.3 % (35.4-49); MCH 29.8 pg (25.7-33.7); MCHC 32.8 g/dl (32.0-35.9); MEAN CELL VOLUME 91.1 fl (80-96); PLATELET COUNT 955 K/MM3 (134-434); RBC 2.34 M/mm3 (4.00-5.60)
[2020-09-12 09:11] LABS: CALCIUM 8.4 mg/dL (8.5-10.1)
[2020-09-12 09:12] LABS: ALBUMIN 3.6 g/dl (3.4-5.0); BLOOD UREA NITROGEN 30.5 mg/dL (7-18); MAGNESIUM 2.2 mg/dL (1.8-2.4)
[2020-09-12 09:15] LABS: CREATININE 1.2 mg/dL (0.55-1.3)
[2020-09-12 09:17] LABS: BILIRUBIN,TOTAL 0.3 mg/dL (0.2-1); TOT PROT 7.8 g/dl (6.4-8.2)
[2020-09-12 10:18] LABS: ANISOCYTOSIS 2+; PLATELET ESTIMATE INCREASED; ROULEAU 1+; TARGET CELLS 1+
[2020-09-12 15:45] VITALS: BP 127/57; PULSE 102; TEMP 97.8
[2020-09-12 17:42] LABS: BASO % 2.7 % (0-2.0); EOS % 13.6 % (0-4.5); HEMATOCRIT 25.3 % (35.4-49); HEMOGLOBIN 8.3 GM/dL (11.7-16.9); LYMPH % 14.7 % (8-40); MCH 29.8 pg (25.7-33.7); MEAN CELL VOLUME 90.1 fl (80-96); MEAN PLT VOLUME 9.4 fl (7.5-11.1); MONO % 7.9 % (3.8-10.2); NEUT % 61.1 % (42.8-82.8); PLATELET COUNT 825 K/MM3 (134-434); RDW 19.1 % (11.9-15.9); WHITE BLOOD COUNT 18.7 K/mm3 (4.0-10.0)
[2020-09-12 23:59] LABS: ANISOCYTOSIS 0; MACROCYTOSIS 0; OVALOCYTE 1+; PLATELET ESTIMATE INCREASED; TARGET CELLS 2+
== END 2020-09-12 17:45 | disposition home or self-care (01) ==
LOC: JONCBLOOD 07:02
PROVIDERS: ATTEND Internal Medicine Hematology & Oncology
PROC: 30233N1 Transfusion of Nonautologous Red Blood Cells into Peripheral Vein, Percutaneous Approach (ICD-10-PCS; principal; 2020-09-12)
DX: D64.9 Anemia, unspecified (principal)
CPT/HCPCS: 36415; 36430; 36511; 80053; 83735; 85025; 86850; 86900; 86901; 86922; P9016; P9058

== ENCOUNTER 2020-09-26 07:43 | Day surgery (SDC) | payer BC, OTHER ==
[2020-09-26] MEDS ORDERED: SODIUM CHLORIDE 250 ML IV ONE (09:00)
[2020-09-26] MEDS ORDERED: diphenhydrAMINE HCL 12.5 MG/5 ML UNIT-DOSE CUPS PO ONE (10:00)
[2020-09-26] MEDS ORDERED: DEXAMETHASONE SODIUM PHOSPHATE 4 MG, ONDANSETRON INJECTION 8 MG in SODIUM CHLORIDE 100 ML IVPB ONE (10:00)
[2020-09-26] MEDS ORDERED: SODIUM CHLORIDE IV ONE (10:30)
[2020-09-26] MEDS ORDERED: CEMIPLIMAB RWLC IV ONE (10:30)
[2020-09-26 15:55] LABS: HEMATOCRIT 21.2 % (35.4-49); MCH 29.4 pg (25.7-33.7); MCHC 32.7 g/dl (32.0-35.9); MEAN CELL VOLUME 90.1 fl (80-96); MEAN PLT VOLUME 10.6 fl (7.5-11.1); PLATELET COUNT 471 K/MM3 (134-434); RBC 2.35 M/mm3 (4.00-5.60); RDW 19.7 % (11.9-15.9)
[2020-09-26 16:01] LABS: HEMOGLOBIN 6.9 GM/dL (11.7-16.9); WHITE BLOOD COUNT 14.1 K/mm3 (4.0-10.0)
[2020-09-26 16:24] LABS: ANISOCYTOSIS 1+; MACROCYTOSIS 1+; OVALOCYTE 1+; PLATELET ESTIMATE INCREASED; TARGET CELLS 1+
[2020-09-26 17:04] VITALS: TEMP 98.1
[2020-09-26 17:36] VITALS: BP 128/75; PULSE 63
== END 2020-09-26 17:37 | disposition home or self-care (01) ==
LOC: JONCCHEMO 07:43
PROVIDERS: ATTEND Internal Medicine Hematology & Oncology
DX: Z51.11 Encounter for antineoplastic chemotherapy (principal); D46.9 Myelodysplastic syndrome, unspecified; C44.92 Squamous cell carcinoma of skin, unspecified
CPT/HCPCS: 36415; 85025; 96361; 96367; 96413; J9119

== ENCOUNTER 2020-09-28 08:18 | Day surgery (SDC) | payer BC ==
[2020-09-28 08:56] LABS: ALBUMIN 3.6 g/dl (3.4-5.0); CALCIUM 8.6 mg/dL (8.5-10.1)
[2020-09-28 08:57] LABS: BLOOD UREA NITROGEN 32.1 mg/dL (7-18); MAGNESIUM 2.3 mg/dL (1.8-2.4)
[2020-09-28 09:01] LABS: BILIRUBIN,TOTAL 0.4 mg/dL (0.2-1); TOT PROT 7.7 g/dl (6.4-8.2)
[2020-09-28] MEDS ORDERED: POTASSIUM CHLORIDE TABS 20 MEQ TABLET.ER (FP) PO ONE (13:02)
[2020-09-28] MEDS ORDERED: FUROSEMIDE 40 MG/4 ML INJECTABLE VIAL IVPUSH ONE (13:02)
[2020-09-28 18:09] VITALS: BP 142/77; PULSE 75; TEMP 98
[2020-09-28 19:15] LABS: BASO % 2.8 % (0-2.0); EOS % 15.2 % (0-4.5); HEMATOCRIT 27.5 % (35.4-49); LYMPH % 15.6 % (8-40); MCH 29.4 pg (25.7-33.7); MCHC 32.6 g/dl (32.0-35.9); MEAN CELL VOLUME 90.1 fl (80-96); MEAN PLT VOLUME 10.8 fl (7.5-11.1); MONO % 17.1 % (3.8-10.2); NEUT % 49.3 % (42.8-82.8); PLATELET COUNT 460 K/MM3 (134-434); RBC 3.06 M/mm3 (4.00-5.60); WHITE BLOOD COUNT 15.3 K/mm3 (4.0-10.0)
[2020-09-28 20:40] LABS: ANISOCYTOSIS 1+; MACROCYTOSIS 1+; PLATELET ESTIMATE NORMAL
== END 2020-09-28 18:30 | disposition home or self-care (01) ==
LOC: JONCBLOOD 08:18
PROVIDERS: ATTEND Internal Medicine Hematology & Oncology
PROC: 30233N1 Transfusion of Nonautologous Red Blood Cells into Peripheral Vein, Percutaneous Approach (ICD-10-PCS; principal; 2020-09-28)
DX: D46.9 Myelodysplastic syndrome, unspecified (principal); C44.92 Squamous cell carcinoma of skin, unspecified
CPT/HCPCS: 36415; 36430; 80053; 83615; 83735; 85025; 86850; 86900; 86901; 86922; P9058

== ENCOUNTER 2020-10-17 07:38 | Day surgery (SDC) | payer BC ==
[2020-10-17] MEDS ORDERED: SODIUM CHLORIDE 250 ML IV ONE (09:00)
[2020-10-17] MEDS ORDERED: diphenhydrAMINE HCL 12.5 MG/5 ML UNIT-DOSE CUPS PO ONE (09:30)
[2020-10-17] MEDS ORDERED: DEXAMETHASONE SODIUM PHOSPHATE 4 MG, ONDANSETRON INJECTION 8 MG in SODIUM CHLORIDE 100 ML IVPB ONE (09:30)
[2020-10-17] MEDS ORDERED: SODIUM CHLORIDE IV ONE (10:00)
[2020-10-17] MEDS ORDERED: CEMIPLIMAB RWLC IV ONE (10:00)
[2020-10-17 16:38] VITALS: TEMP 98.3
[2020-10-17 17:24] VITALS: BP 114/55; PULSE 82
== END 2020-10-17 17:10 | disposition home or self-care (01) ==
LOC: JONCCHEMO 07:38
PROVIDERS: ATTEND Internal Medicine Hematology & Oncology
DX: Z51.11 Encounter for antineoplastic chemotherapy (principal); C44.92 Squamous cell carcinoma of skin, unspecified; D46.9 Myelodysplastic syndrome, unspecified
CPT/HCPCS: 96361; 96367; 96413; J9119

== ENCOUNTER 2020-10-24 07:28 | Day surgery (SDC) | payer BC, OTHER ==
[2020-10-24] MEDS ORDERED: FUROSEMIDE 20 MG TABLET (FP) PO ONE (08:30)
[2020-10-24 08:43] LABS: BASO % 0.4 % (0-2.0); EOS % 12.2 % (0-4.5); HEMATOCRIT 22.7 % (35.4-49); LYMPH % 9.5 % (8-40); MCH 27.8 pg (25.7-33.7); MEAN CELL VOLUME 89.6 fl (80-96); MONO % 5.5 % (3.8-10.2); NEUT % 72.4 % (42.8-82.8); RBC 2.54 M/mm3 (4.00-5.60); RDW 18.6 % (11.9-15.9)
[2020-10-24 08:50] LABS: CHLORIDE 108 mmol/L (98-107); SODIUM 138 mmol/L (136-145)
[2020-10-24 08:52] LABS: ALBUMIN 3.5 g/dl (3.4-5.0); BLOOD UREA NITROGEN 34.2 mg/dL (7-18); CALCIUM 9.6 mg/dL (8.5-10.1)
[2020-10-24 08:53] LABS: CO2 24 mmol/L (21-32); GLUCOSE,RANDOM 126 mg/dL (74-106); MAGNESIUM 2.3 mg/dL (1.8-2.4)
[2020-10-24 08:55] LABS: PLATELET COUNT 1333 10^3/uL (134-434)
[2020-10-24 08:56] LABS: SGPT/ALT 20 U/L (13-61)
[2020-10-24 08:58] LABS: BILIRUBIN,TOTAL 0.3 mg/dL (0.2-1); TOT PROT 7.6 g/dl (6.4-8.2)
[2020-10-24 08:59] LABS: ALK PHOS 115 U/L (45-117)
[2020-10-24 09:00] LABS: SGOT/AST 23 U/L (15-37)
[2020-10-24 09:08] LABS: ANION GAP 7 MMOL/L (8-16)
[2020-10-24 10:05] LABS: ANISOCYTOSIS 1+; MACROCYTOSIS 1+; PLATELET ESTIMATE INCREASED
[2020-10-24 10:08] LABS: WHITE BLOOD COUNT 45.9 K/mm3 (4.0-10.0)
[2020-10-24 17:21] VITALS: TEMP 98.3
[2020-10-24 17:51] VITALS: BP 128/66; PULSE 81
== END 2020-10-24 17:59 | disposition home or self-care (01) ==
LOC: JONCBLOOD 07:28
PROVIDERS: ATTEND Internal Medicine Hematology & Oncology
PROC: 30233N1 Transfusion of Nonautologous Red Blood Cells into Peripheral Vein, Percutaneous Approach (ICD-10-PCS; principal; 2020-10-24)
DX: D46.9 Myelodysplastic syndrome, unspecified (principal); C44.92 Squamous cell carcinoma of skin, unspecified
CPT/HCPCS: 36415; 36430; 80053; 83735; 85025; 86850; 86900; 86901; 86922; P9058

== ENCOUNTER → 2020-11-11 | Day surgery (SDC) | payer BC, OTHER ==
[~2020-11-11] MED LIST: FUROSEMIDE 20 MG TABLET (FP) PO ONE
[2020-11-11 11:04] LABS: BASO % 1.4 % (0-2.0); EOS % 7.5 % (0-4.5); HEMATOCRIT 22.8 % (35.4-49); LYMPH % 12.2 % (8-40); MCH 27.5 pg (25.7-33.7); MCHC 30.8 g/dl (32.0-35.9); MEAN CELL VOLUME 89.1 fl (80-96); MEAN PLT VOLUME 10.3 fl (7.5-11.1); MONO % 8.9 % (3.8-10.2); RDW 17.2 % (11.9-15.9)
[2020-11-11 11:05] LABS: PLATELET COUNT 1202 10^3/uL (134-434)
[2020-11-11 11:08] LABS: WHITE BLOOD COUNT 41.2 K/mm3 (4.0-10.0)
[2020-11-11 11:19] LABS: CHLORIDE 109 mmol/L (98-107); SODIUM 137 mmol/L (136-145)
[2020-11-11 11:21] LABS: ALBUMIN 3.4 g/dl (3.4-5.0); BLOOD UREA NITROGEN 37.9 mg/dL (7-18); CALCIUM 9.3 mg/dL (8.5-10.1); CO2 23 mmol/L (21-32)
[2020-11-11 11:22] LABS: GLUCOSE,RANDOM 75 mg/dL (74-106)
[2020-11-11 11:24] LABS: SGOT/AST 17 U/L (15-37); SGPT/ALT 18 U/L (13-61)
[2020-11-11 11:26] LABS: BILIRUBIN,TOTAL 0.3 mg/dL (0.2-1); TOT PROT 7.6 g/dl (6.4-8.2)
[2020-11-11 11:27] LABS: ALK PHOS 109 U/L (45-117)
[2020-11-11 11:52] LABS: ANION GAP 6 MMOL/L (8-16)
[2020-11-11 15:19] LABS: ANISOCYTOSIS 0; MACROCYTOSIS 1+; PLATELET ESTIMATE INCREASED; TARGET CELLS 1+
[2020-11-11 17:46] VITALS: BP 143/62; PULSE 97; TEMP 97.6
[2020-11-11 19:43] LABS: HEMATOCRIT 26.9 % (35.4-49); HEMOGLOBIN 8.6 GM/dL (11.7-16.9); MEAN CELL VOLUME 87.4 fl (80-96); MEAN PLT VOLUME 9.7 fl (7.5-11.1); PLATELET COUNT 1065 10^3/uL (134-434); RBC 3.08 M/mm3 (4.00-5.60); RDW 16.1 % (11.9-15.9)
[2020-11-11 20:02] LABS: ADD RBC MORPHOLOGY YES
[2020-11-11 21:03] LABS: ANISOCYTOSIS 2+; MACROCYTOSIS 1+; PLATELET ESTIMATE INCREASED; TARGET CELLS 1+
[2020-11-11 21:06] LABS: WHITE BLOOD COUNT 39.6 K/mm3 (4.0-10.0)
== END | disposition home or self-care (01) ==
LOC: JONCBLOOD 07:38
PROVIDERS: ATTEND Internal Medicine Hematology & Oncology
PROC: 30233N1 Transfusion of Nonautologous Red Blood Cells into Peripheral Vein, Percutaneous Approach (ICD-10-PCS; principal; 2020-11-11)
DX: D46.9 Myelodysplastic syndrome, unspecified (principal); C44.92 Squamous cell carcinoma of skin, unspecified; I48.20 Chronic atrial fibrillation, unspecified
CPT/HCPCS: 36415; 36430; 80053; 84132; 85025; 86850; 86900; 86901; 86922; P9058

== ENCOUNTER 2020-12-05 06:49 | Day surgery (SDC) | payer BC, OTHER ==
[~2020-12-05 06:49] MED LIST changes: +CEMIPLIMAB RWLC IV ONE; +DEXAMETHASONE SODIUM PHOSPHATE 4 MG, ONDANSETRON INJECTION 8 MG in SODIUM CHLORIDE 100 ML IVPB ONE; -FUROSEMIDE 20 MG TABLET (FP) PO ONE; +SODIUM CHLORIDE 250 ML IV ONE; +SODIUM CHLORIDE IV ONE; +diphenhydrAMINE HCL 12.5 MG/5 ML UNIT-DOSE CUPS PO ONE
[2020-12-05 09:43] LABS: BASO % 0.5 % (0-2.0); HEMATOCRIT 19.9 % (35.4-49); LYMPH % 9.3 % (8-40); MEAN CELL VOLUME 90.6 fl (80-96); MEAN PLT VOLUME 12.3 fl (7.5-11.1); MONO % 15.1 % (3.8-10.2); NEUT % 68.1 % (42.8-82.8); RBC 2.19 M/mm3 (4.00-5.60); RDW 16.1 % (11.9-15.9)
[2020-12-05 09:51] LABS: PLATELET COUNT 212 10^3/uL (134-434)
[2020-12-05 09:58] LABS: HEMOGLOBIN 6.4 GM/dL (11.7-16.9); WHITE BLOOD COUNT 47.8 K/mm3 (4.0-10.0)
[2020-12-05 09:59] LABS: ALBUMIN 3.4 g/dl (3.4-5.0); BLOOD UREA NITROGEN 48.9 mg/dL (7-18); CALCIUM 8.8 mg/dL (8.5-10.1); MAGNESIUM 2.6 mg/dL (1.8-2.4)
[2020-12-05] MEDS ORDERED: FUROSEMIDE 20 MG TABLET (FP) PO ONE (10:00)
[2020-12-05 10:02] LABS: CREATININE 1.3 mg/dL (0.55-1.3)
[2020-12-05 10:04] LABS: BILIRUBIN,TOTAL 0.3 mg/dL (0.2-1); TOT PROT 7.7 g/dl (6.4-8.2)
[2020-12-05 12:50] LABS: ANISOCYTOSIS 1+; MACROCYTOSIS 1+; PLATELET ESTIMATE NORMAL
[2020-12-05 18:36] VITALS: BP 150/64; PULSE 89; TEMP 97.9
[2020-12-05 19:26] LABS: BASO % 0.6 % (0-2.0); EOS % 7.6 % (0-4.5); HEMOGLOBIN 7.9 GM/dL (11.7-16.9); LYMPH % 13.6 % (8-40); MCH 29.2 pg (25.7-33.7); MCHC 33.1 g/dl (32.0-35.9); MEAN CELL VOLUME 88.4 fl (80-96); MEAN PLT VOLUME 11.5 fl (7.5-11.1); MONO % 12.6 % (3.8-10.2); NEUT % 65.6 % (42.8-82.8); PLATELET COUNT 241 10^3/uL (134-434); RBC 2.71 M/mm3 (4.00-5.60); RDW 14.8 % (11.9-15.9)
[2020-12-05 19:46] LABS: WHITE BLOOD COUNT 45.3 K/mm3 (4.0-10.0)
[2020-12-05 20:06] LABS: ANISOCYTOSIS 2+; MACROCYTOSIS 2+; PLATELET ESTIMATE NORMAL
== END 2020-12-05 06:55 | disposition home or self-care (01) ==
LOC: JONCBLOOD 06:49
PROVIDERS: ATTEND Internal Medicine Hematology & Oncology
PROC: 30233N1 Transfusion of Nonautologous Red Blood Cells into Peripheral Vein, Percutaneous Approach (ICD-10-PCS; principal; 2020-12-05)
DX: D46.9 Myelodysplastic syndrome, unspecified (principal); C44.92 Squamous cell carcinoma of skin, unspecified
CPT/HCPCS: 36415; 36430; 80053; 83735; 85025; 86850; 86900; 86901; 86922; P9058

== ENCOUNTER → 2020-12-20 | Day surgery (SDC) | payer BC, OTHER ==
[2020-12-20 15:42] LABS: HEMATOCRIT 21.1 % (35.4-49); MCH 29.7 pg (25.7-33.7); MCHC 32.6 g/dl (32.0-35.9); MEAN CELL VOLUME 91.3 fl (80-96); MEAN PLT VOLUME 9.3 fl (7.5-11.1); PLATELET COUNT 821 10^3/uL (134-434); RBC 2.31 M/mm3 (4.00-5.60); RDW 16.4 % (11.9-15.9)
[2020-12-20 16:01] LABS: ALBUMIN 3.3 g/dl (3.4-5.0); BLOOD UREA NITROGEN 37.5 mg/dL (7-18); CALCIUM 8.6 mg/dL (8.5-10.1)
[2020-12-20 16:04] LABS: BILIRUBIN,DIRECT 0.1 mg/dL (0.0-0.2); CREATININE 1.2 mg/dL (0.55-1.3)
[2020-12-20 16:06] LABS: BILIRUBIN,TOTAL 0.2 mg/dL (0.2-1); TOT PROT 7.8 g/dl (6.4-8.2)
[2020-12-20 16:07] LABS: HEMOGLOBIN 6.9 GM/dL (11.7-16.9)
[2020-12-20 17:26] LABS: ANISOCYTOSIS 1+; MACROCYTOSIS 0; OVALOCYTE 1+; PLATELET ESTIMATE INCREASED; TARGET CELLS 1+
== END | disposition home or self-care (01) ==
LOC: JONCCHEMO 06:36
PROVIDERS: ATTEND Internal Medicine Hematology & Oncology
DX: Z53.8 Procedure and treatment not carried out for other reasons (principal)
CPT/HCPCS: 36415; 80048; 80076; 82150; 82533; 83690; 83735; 84132; 84439; 84443; 85025; 96365

== ENCOUNTER 2020-12-26 07:26 | Day surgery (SDC) | payer BC, OTHER ==
[2020-12-26 09:36] LABS: CALCIUM 8.9 mg/dL (8.5-10.1)
[2020-12-26 09:37] LABS: ALBUMIN 3.1 g/dl (3.4-5.0); BLOOD UREA NITROGEN 33.1 mg/dL (7-18); MAGNESIUM 2.6 mg/dL (1.8-2.4)
[2020-12-26 09:39] LABS: URIC ACID 7.2 mg/dL (2.6-7.2)
[2020-12-26 09:40] LABS: CREATININE 1.2 mg/dL (0.55-1.3)
[2020-12-26 09:41] LABS: BILIRUBIN,TOTAL 0.2 mg/dL (0.2-1); TOT PROT 7.4 g/dl (6.4-8.2)
[2020-12-26] MEDS ORDERED: FUROSEMIDE 20 MG TABLET (FP) PO ONE (11:00)
[2020-12-26 18:22] VITALS: TEMP 98.5
[2020-12-26 18:30] VITALS: BP 143/69; PULSE 91
[2020-12-26 19:07] LABS: HEMATOCRIT 24.3 % (35.4-49); HEMOGLOBIN 7.7 GM/dL (11.7-16.9); MCH 28.5 pg (25.7-33.7); MCHC 31.7 g/dl (32.0-35.9); RDW 15.6 % (11.9-15.9)
[2020-12-26 19:16] LABS: PLATELET COUNT 1558 10^3/uL (134-434)
[2020-12-26 19:33] LABS: WHITE BLOOD COUNT 70.5 K/mm3 (4.0-10.0)
[2020-12-27 09:05] LABS: ANISOCYTOSIS 0; MACROCYTOSIS 0; PLATELET ESTIMATE INCREASED
== END 2020-12-26 18:45 | disposition home or self-care (01) ==
LOC: JONCBLOOD 07:26
PROVIDERS: ATTEND Internal Medicine Hematology & Oncology
PROC: 30233N1 Transfusion of Nonautologous Red Blood Cells into Peripheral Vein, Percutaneous Approach (ICD-10-PCS; principal; 2020-12-26)
DX: D46.9 Myelodysplastic syndrome, unspecified (principal); C44.92 Squamous cell carcinoma of skin, unspecified
CPT/HCPCS: 36415; 36430; 80053; 83615; 83735; 84550; 85025; 86850; 86900; 86901; 86922; P9058

== ENCOUNTER 2021-01-26 19:59 | Inpatient (IN) | payer BC, OTHER ==
[2021-01-26 21:14] LABS: HEMATOCRIT 13.5 % (35.4-49); MCH 27.7 pg (25.7-33.7); MCHC 30.9 g/dl (32.0-35.9); MEAN CELL VOLUME 89.6 fl (80-96); RBC 1.51 M/mm3 (4.00-5.60); RDW 15.5 % (11.9-15.9)
[2021-01-26 21:18] LABS: WHITE BLOOD COUNT 66.4 K/mm3 (4.0-10.0)
[2021-01-26 21:19] LABS: HEMOGLOBIN 4.2 GM/dL (11.7-16.9)
[2021-01-26 21:25] LABS: INR 1.39 (0.83-1.09); PROTHROMBIN TIME (PATIENT) 17.1 SEC (9.7-13.0)
[2021-01-26 21:27] LABS: ACTIVATED PTT 30.6 SECONDS (25.2-36.5)
[2021-01-26 21:36] LABS: CHLORIDE 109 mmol/L (98-107); SODIUM 139 mmol/L (136-145)
[2021-01-26 21:38] LABS: CALCIUM 8.5 mg/dL (8.5-10.1)
[2021-01-26 21:39] LABS: ANION GAP 7 MMOL/L (8-16); BLOOD UREA NITROGEN 53.8 mg/dL (7-18); CO2 22 mmol/L (21-32); GLUCOSE,RANDOM 99 mg/dL (74-106); MAGNESIUM 2.5 mg/dL (1.8-2.4)
[2021-01-26 21:42] LABS: CREATININE 1.3 mg/dL (0.55-1.3); PHOSPHOROUS 4.7 mg/dL (2.5-4.9); SGOT/AST 17 U/L (15-37); SGPT/ALT 15 U/L (13-61)
[2021-01-26 21:43] LABS: BILIRUBIN,TOTAL 0.3 mg/dL (0.2-1); TOT PROT 7.2 g/dl (6.4-8.2)
[2021-01-26 21:44] LABS: ALK PHOS 109 U/L (45-117)
[2021-01-26 22:20] LABS: ANISOCYTOSIS 1+; MACROCYTOSIS 0; OVALOCYTE 1+; PLATELET ESTIMATE DECREASED
[2021-01-26 22:28] LABS: MEAN PLT VOLUME 12.1 fl (7.5-11.1); PLATELET COUNT 61 10^3/uL (134-434)
[2021-01-27 04:23] LABS: IRON SERUM 188 ug/dL (50-175); RETICULOCYTES 1.64 % (0.5-1.5); TOTAL IRON BINDING CAPACITY 196 ug/dL (250-450)
[2021-01-27 06:11] LABS: HEMATOCRIT 19.3 % (35.4-49); MCH 29.4 pg (25.7-33.7); MCHC 33.5 g/dl (32.0-35.9); MEAN CELL VOLUME 87.9 fl (80-96); MEAN PLT VOLUME 12.6 fl (7.5-11.1); PLATELET COUNT 57 10^3/uL (134-434); RBC 2.19 M/mm3 (4.00-5.60); RDW 15.5 % (11.9-15.9)
[2021-01-27 06:33] LABS: WHITE BLOOD COUNT 62.5 K/mm3 (4.0-10.0)
[2021-01-27 06:34] LABS: HEMOGLOBIN 6.4 GM/dL (11.7-16.9)
[2021-01-27 06:35] LABS: CALCIUM 8.2 mg/dL (8.5-10.1)
[2021-01-27 06:36] LABS: BLOOD UREA NITROGEN 49.1 mg/dL (7-18); MAGNESIUM 2.5 mg/dL (1.8-2.4)
[2021-01-27 06:39] LABS: CREATININE 1.1 mg/dL (0.55-1.3); PHOSPHOROUS 4.5 mg/dL (2.5-4.9)
[2021-01-27 09:39] VITALS: BMI 24.2
[2021-01-27] MEDS ORDERED: FUROSEMIDE 40 MG/4 ML INJECTABLE VIAL IVPUSH ONE (11:00)
[2021-01-27] MEDS: TAMSULOSIN HCL 0.4 MG CAP PO SCH (11:42)
[2021-01-27] MEDS: levETIRAcetam 500 MG TABLET (FP) PO SCH (11:43)
[2021-01-27] MEDS: HEPARIN NA (PORCINE) 5,000 UNITS/ML 1ML VIAL SQ SCH ×2 (11:44→13:31)
[2021-01-27] MEDS: METOPROLOL TARTRATE 50 MG TABLET (FP) PO SCH ×2 (11:51→21:33)
[2021-01-27] MEDS: FINASTERIDE 5 MG TABLET (FP) PO SCH (11:51)
[2021-01-27] MEDS: MELATONIN 5 MG TABLETS PO SCH (22:07)
[2021-01-28] MEDS: TAMSULOSIN HCL 0.4 MG CAP PO SCH (08:25)
[2021-01-28 09:24] LABS: HEMATOCRIT 22.3 % (35.4-49); HEMOGLOBIN 7.5 GM/dL (11.7-16.9); MCH 29.6 pg (25.7-33.7); MCHC 33.7 g/dl (32.0-35.9); MEAN CELL VOLUME 87.9 fl (80-96); MEAN PLT VOLUME 12.9 fl (7.5-11.1); PLATELET COUNT 48 10^3/uL (134-434); RBC 2.53 M/mm3 (4.00-5.60); RDW 15.1 % (11.9-15.9)
[2021-01-28] MEDS ORDERED: PT OWN MED DRAWER 7, Y5N ONE (09:39)
[2021-01-28 09:43] LABS: WHITE BLOOD COUNT 68.7 K/mm3 (4.0-10.0)
[2021-01-28] MEDS: FINASTERIDE 5 MG TABLET (FP) PO SCH (09:45)
[2021-01-28] MEDS: levETIRAcetam 500 MG TABLET (FP) PO SCH (09:45)
[2021-01-28] MEDS: METOPROLOL TARTRATE 50 MG TABLET (FP) PO SCH ×2 (09:45→21:36)
[2021-01-28 10:06] LABS: ALBUMIN 2.9 g/dl (3.4-5.0); BLOOD UREA NITROGEN 39.8 mg/dL (7-18); CALCIUM 8.5 mg/dL (8.5-10.1)
[2021-01-28 10:09] LABS: CREATININE 1.1 mg/dL (0.55-1.3)
[2021-01-28 10:10] LABS: BILIRUBIN,TOTAL 1.2 mg/dL (0.2-1)
[2021-01-28 10:11] LABS: TOT PROT 6.9 g/dl (6.4-8.2)
[2021-01-28 12:09] LABS: ANISOCYTOSIS 1+; MACROCYTOSIS 0; PLATELET ESTIMATE DECREASED
[2021-01-28] MEDS: MELATONIN 5 MG TABLETS PO SCH (21:36)
[2021-01-29] MEDS ORDERED: PT OWN MED DRAWER 7, Y5N ONE (09:47)
[2021-01-29] MEDS: levETIRAcetam 500 MG TABLET (FP) PO SCH (09:55)
[2021-01-29] MEDS: FINASTERIDE 5 MG TABLET (FP) PO SCH (09:56)
[2021-01-29] MEDS: TAMSULOSIN HCL 0.4 MG CAP PO SCH (09:56)
[2021-01-29] MEDS: METOPROLOL TARTRATE 50 MG TABLET (FP) PO SCH ×2 (09:56→21:03)
[2021-01-29] MEDS: MELATONIN 5 MG TABLETS PO SCH (21:03)
[2021-01-30 07:44] LABS: HEMATOCRIT 22.1 % (35.4-49); HEMOGLOBIN 7.2 GM/dL (11.7-16.9); MCH 28.8 pg (25.7-33.7); MCHC 32.7 g/dl (32.0-35.9); MEAN CELL VOLUME 88.2 fl (80-96); MEAN PLT VOLUME 10.7 fl (7.5-11.1); RDW 15.3 % (11.9-15.9)
[2021-01-30 07:47] LABS: PLATELET COUNT 34 10^3/uL (134-434)
[2021-01-30 08:05] LABS: ALBUMIN 2.6 g/dl (3.4-5.0); BLOOD UREA NITROGEN 30.8 mg/dL (7-18); CALCIUM 7.9 mg/dL (8.5-10.1); MAGNESIUM 2.4 mg/dL (1.8-2.4)
[2021-01-30 08:08] LABS: CREATININE 1.1 mg/dL (0.55-1.3)
[2021-01-30 08:10] LABS: BILIRUBIN,TOTAL 0.4 mg/dL (0.2-1); TOT PROT 6.5 g/dl (6.4-8.2)
[2021-01-30 09:21] LABS: ANISOCYTOSIS 0; HELMET CELLS 0; HOWELL-JOLLY BODIES 0; MACROCYTOSIS 0; OVALOCYTE 0; PLATELET ESTIMATE DECREASED; ROULEAU 0; SICKELED CELLS 0; TARGET CELLS 0; TEAR DROP CELLS 0; TOXIC GRANULATION 0
[2021-01-30] MEDS: TAMSULOSIN HCL 0.4 MG CAP PO SCH (09:22)
[2021-01-30] MEDS: levETIRAcetam 500 MG TABLET (FP) PO SCH (09:22)
[2021-01-30] MEDS: FINASTERIDE 5 MG TABLET (FP) PO SCH (09:22)
[2021-01-30] MEDS: METOPROLOL TARTRATE 50 MG TABLET (FP) PO SCH (09:26)
[2021-01-30 14:31] VITALS: BP 136/65; PULSE 71; TEMP 98.5
== END 2021-01-30 15:58 | disposition home or self-care (01) | DRG 841 ==
LOC: JER 19:59 → JERBED 22:39 → J7W 01-27 08:56
PROVIDERS: ADMIT Internal Medicine; ATTEND Internal Medicine
PROC: 30233N1 Transfusion of Nonautologous Red Blood Cells into Peripheral Vein, Percutaneous Approach (ICD-10-PCS; principal; 2021-01-26)
DX: D47.1 Chronic myeloproliferative disease (principal); J90 Pleural effusion, not elsewhere classified; N17.9 Acute kidney failure, unspecified; J98.11 Atelectasis; D50.0 Iron deficiency anemia secondary to blood loss (chronic); C43.9 Malignant melanoma of skin, unspecified; N40.0 Benign prostatic hyperplasia without lower urinary tract symptoms; C43.30 Malignant melanoma of unspecified part of face; D72.829 Elevated white blood cell count, unspecified; D69.59 Other secondary thrombocytopenia; I12.9 Hypertensive chronic kidney disease with stage 1 through stage 4 chronic kidney disease, or unspecified chronic kidney disease; N18.9 Chronic kidney disease, unspecified; F32.9 Major depressive disorder, single episode, unspecified; R25.1 Tremor, unspecified; H91.92 Unspecified hearing loss, left ear; K21.9 Gastro-esophageal reflux disease without esophagitis; I48.91 Unspecified atrial fibrillation; Z90.81 Acquired absence of spleen
CPT/HCPCS: 36415; 36430; 36511; 70450-TC; 71045-TC-FY; 72125-TC; 76775-TC; 80048; 80053; 82550; 82728; 83540; 83550; 83735; 84100; 84484; 85025; 85027; 85045; 85610; 85730; 86850; 86900; 86901; 86922; 93005; 93010; 97116-GP; 97162-GP; 99285-25; C9803; J1644; P9016; P9038; P9058; U0003; U0005

== ENCOUNTER 2021-02-07 07:23 | Day surgery (SDC) | payer BC, OTHER ==
[2021-02-07 09:38] LABS: HEMATOCRIT 22.1 % (35.4-49); MCH 27.8 pg (25.7-33.7); MEAN CELL VOLUME 89.6 fl (80-96); MEAN PLT VOLUME 10.4 fl (7.5-11.1); PLATELET COUNT 812 10^3/uL (134-434); RBC 2.47 M/mm3 (4.00-5.60); RDW 16.4 % (11.9-15.9)
[2021-02-07 09:43] LABS: HEMOGLOBIN 6.9 GM/dL (11.7-16.9); WHITE BLOOD COUNT 126.3 K/mm3 (4.0-10.0)
[2021-02-07 09:59] LABS: CALCIUM 9.2 mg/dL (8.5-10.1)
[2021-02-07 10:00] LABS: ALBUMIN 3.1 g/dl (3.4-5.0); MAGNESIUM 2.5 mg/dL (1.8-2.4)
[2021-02-07 10:02] LABS: URIC ACID 7.3 mg/dL (2.6-7.2)
[2021-02-07 10:03] LABS: CREATININE 1.2 mg/dL (0.55-1.3)
[2021-02-07 10:04] LABS: BILIRUBIN,TOTAL 0.2 mg/dL (0.2-1); TOT PROT 7.7 g/dl (6.4-8.2)
[2021-02-07 10:17] LABS: ANISOCYTOSIS 2+; MACROCYTOSIS 1+; PLATELET ESTIMATE INCREASED
[2021-02-07] MEDS ORDERED: FUROSEMIDE 40 MG/4 ML INJECTABLE VIAL IVPUSH ONE (13:30)
[2021-02-07 18:42] VITALS: BP 141/72; PULSE 88; TEMP 98.9
== END 2021-02-07 19:36 | disposition home or self-care (01) ==
LOC: JBLOOD 07:23 → JONCBLOOD 07:23
PROVIDERS: ATTEND Internal Medicine Hematology & Oncology
PROC: 30233N1 Transfusion of Nonautologous Red Blood Cells into Peripheral Vein, Percutaneous Approach (ICD-10-PCS; principal; 2021-02-07)
DX: D46.9 Myelodysplastic syndrome, unspecified (principal); C44.92 Squamous cell carcinoma of skin, unspecified
CPT/HCPCS: 36415; 36430; 36511; 80053; 83615; 83735; 84550; 85025; 86850; 86900; 86901; 86922; P9016; P9058

== ENCOUNTER 2021-02-27 07:24 | Day surgery (SDC) | payer BC, OTHER ==
[2021-02-27 09:03] LABS: HEMATOCRIT 23.3 % (35.4-49); HEMOGLOBIN 7.3 GM/dL (11.7-16.9); MCH 27.8 pg (25.7-33.7); MCHC 31.4 g/dl (32.0-35.9); MEAN CELL VOLUME 88.5 fl (80-96); MEAN PLT VOLUME 9.6 fl (7.5-11.1); PLATELET COUNT 713 10^3/uL (134-434); RBC 2.64 M/mm3 (4.00-5.60)
[2021-02-27 09:22] LABS: WHITE BLOOD COUNT 142.8 K/mm3 (4.0-10.0)
[2021-02-27] MEDS ORDERED: FUROSEMIDE 20 MG TABLET (FP) PO ONE ×2 (09:30→14:45)
[2021-02-27 13:36] LABS: ANISOCYTOSIS 0; MACROCYTOSIS 0; PLATELET ESTIMATE INCREASED
[2021-02-27 17:47] VITALS: BP 136/55; PULSE 61; TEMP 98.2
[2021-02-27 18:17] LABS: HEMATOCRIT 26.4 % (35.4-49); HEMOGLOBIN 8.1 GM/dL (11.7-16.9); MCH 26.9 pg (25.7-33.7); MCHC 30.8 g/dl (32.0-35.9); MEAN CELL VOLUME 87.4 fl (80-96); MEAN PLT VOLUME 11.8 fl (7.5-11.1); PLATELET COUNT 664 10^3/uL (134-434); RBC 3.02 M/mm3 (4.00-5.60); RDW 15.5 % (11.9-15.9)
[2021-02-27 18:32] LABS: WHITE BLOOD COUNT 121.3 K/mm3 (4.0-10.0)
== END 2021-02-27 17:48 | disposition home or self-care (01) ==
LOC: JONCBLOOD 07:24
PROVIDERS: ATTEND Internal Medicine Hematology & Oncology
PROC: 30233N1 Transfusion of Nonautologous Red Blood Cells into Peripheral Vein, Percutaneous Approach (ICD-10-PCS; principal; 2021-02-27)
DX: D46.9 Myelodysplastic syndrome, unspecified (principal); C44.92 Squamous cell carcinoma of skin, unspecified
CPT/HCPCS: 36415; 36430; 83735; 84132; 85025; 85027; 86850; 86900; 86901; 86922; P9058

== ENCOUNTER 2021-03-13 07:19 | Day surgery (SDC) | payer BC, OTHER ==
[2021-03-13 09:54] LABS: HEMATOCRIT 23.6 % (35.4-49); HEMOGLOBIN 7.5 GM/dL (11.7-16.9); MCH 28.1 pg (25.7-33.7); MEAN CELL VOLUME 87.8 fl (80-96); MEAN PLT VOLUME 10.9 fl (7.5-11.1); PLATELET COUNT 865 10^3/uL (134-434); RBC 2.68 M/mm3 (4.00-5.60); RDW 16.1 % (11.9-15.9)
[2021-03-13 10:07] LABS: WHITE BLOOD COUNT 76.5 K/mm3 (4.0-10.0)
[2021-03-13 10:12] LABS: ALBUMIN 3.3 g/dl (3.4-5.0); BLOOD UREA NITROGEN 37.3 mg/dL (7-18); CALCIUM 9.1 mg/dL (8.5-10.1); MAGNESIUM 2.7 mg/dL (1.8-2.4)
[2021-03-13 10:15] LABS: CREATININE 1.3 mg/dL (0.55-1.3); PHOSPHOROUS 4.3 mg/dL (2.5-4.9); URIC ACID 7.4 mg/dL (2.6-7.2)
[2021-03-13 10:17] LABS: BILIRUBIN,TOTAL 0.3 mg/dL (0.2-1); TOT PROT 7.9 g/dl (6.4-8.2)
[2021-03-13 11:46] LABS: ANISOCYTOSIS 1+; MACROCYTOSIS 0; PLATELET ESTIMATE INCREASED
[2021-03-13] MEDS ORDERED: FUROSEMIDE 20 MG TABLET (FP) PO ONE (15:15)
[2021-03-13 19:02] VITALS: BP 144/73; PULSE 96; TEMP 98.6
== END 2021-03-13 19:29 | disposition home or self-care (01) ==
LOC: JONCBLOOD 07:19
PROVIDERS: ATTEND Internal Medicine Hematology & Oncology
PROC: 30233N1 Transfusion of Nonautologous Red Blood Cells into Peripheral Vein, Percutaneous Approach (ICD-10-PCS; principal; 2021-03-13)
DX: D46.9 Myelodysplastic syndrome, unspecified (principal); C44.92 Squamous cell carcinoma of skin, unspecified
CPT/HCPCS: 36415; 36430; 80053; 83615; 83735; 84100; 84550; 85025; 86850; 86900; 86901; 86922; P9058

== ENCOUNTER 2021-04-04 07:30 | Day surgery (SDC) | payer BC, OTHER ==
[2021-04-04 09:40] LABS: HEMATOCRIT 19.2 % (35.4-49); MCH 27.9 pg (25.7-33.7); MCHC 31.5 g/dl (32.0-35.9); MEAN CELL VOLUME 88.6 fl (80-96); MEAN PLT VOLUME 10.8 fl (7.5-11.1); PLATELET COUNT 451 10^3/uL (134-434); RBC 2.17 M/mm3 (4.00-5.60); RDW 15.2 % (11.9-15.9)
[2021-04-04 09:46] LABS: WHITE BLOOD COUNT 55.9 K/mm3 (4.0-10.0)
[2021-04-04 09:49] LABS: ALBUMIN 2.6 g/dl (3.4-5.0); BLOOD UREA NITROGEN 51.5 mg/dL (7-18); CALCIUM 8.7 mg/dL (8.5-10.1)
[2021-04-04 09:52] LABS: BILIRUBIN,DIRECT 0.1 mg/dL (0.0-0.2); CREATININE 1.4 mg/dL (0.55-1.3)
[2021-04-04 09:54] LABS: BILIRUBIN,TOTAL 0.3 mg/dL (0.2-1); TOT PROT 6.8 g/dl (6.4-8.2)
[2021-04-04 10:23] LABS: ANISOCYTOSIS 0; MACROCYTOSIS 0; PLATELET ESTIMATE NORMAL
[2021-04-04] MEDS ORDERED: FUROSEMIDE 40 MG/4 ML INJECTABLE VIAL IVPUSH ONE (14:45)
[2021-04-04 18:54] VITALS: BP 137/67; PULSE 89; TEMP 98.5
[2021-04-05 09:34] LABS: HEMATOCRIT 25.3 % (35.4-49); HEMOGLOBIN 7.9 GM/dL (11.7-16.9); MCHC 31.2 g/dl (32.0-35.9); MEAN PLT VOLUME 10.5 fl (7.5-11.1); PLATELET COUNT 426 10^3/uL (134-434); RBC 2.72 M/mm3 (4.00-5.60); RDW 15.6 % (11.9-15.9)
== END 2021-04-04 18:54 | disposition home or self-care (01) ==
LOC: JONCBLOOD 07:30
PROVIDERS: ATTEND Internal Medicine Hematology & Oncology
PROC: 30233H1 Transfusion of Nonautologous Whole Blood into Peripheral Vein, Percutaneous Approach (ICD-10-PCS; principal; 2021-04-04)
DX: C94.6 Myelodysplastic disease, not elsewhere classified (principal)
CPT/HCPCS: 36415; 36430; 80048; 80076; 85025; 85027; 86850; 86900; 86901; 86922; P9058

== ENCOUNTER 2021-04-24 06:21 | Day surgery (SDC) | payer BC, OTHER ==
[2021-04-24 09:38] LABS: CALCIUM 8.5 mg/dL (8.5-10.1)
[2021-04-24 09:39] LABS: ALBUMIN 2.7 g/dl (3.4-5.0); BLOOD UREA NITROGEN 48.5 mg/dL (7-18); MAGNESIUM 2.6 mg/dL (1.8-2.4)
[2021-04-24 09:41] LABS: URIC ACID 6.3 mg/dL (2.6-7.2)
[2021-04-24 09:42] LABS: CREATININE 1.2 mg/dL (0.55-1.3)
[2021-04-24 09:43] LABS: BILIRUBIN,TOTAL 0.3 mg/dL (0.2-1); TOT PROT 6.8 g/dl (6.4-8.2)
[2021-04-24 10:06] LABS: HEMATOCRIT 18.4 % (35.4-49); MCHC 32.1 g/dl (32.0-35.9); MEAN CELL VOLUME 90.2 fl (80-96); MEAN PLT VOLUME 10.5 fl (7.5-11.1); PLATELET COUNT 308 10^3/uL (134-434); RBC 2.04 M/mm3 (4.00-5.60); RDW 14.7 % (11.9-15.9)
[2021-04-24 10:38] LABS: HEMOGLOBIN 5.9 GM/dL (11.7-16.9)
[2021-04-24] MEDS ORDERED: FUROSEMIDE 20 MG TABLET (FP) PO ONE ×2 (11:15→15:00)
[2021-04-24 12:04] LABS: ANISOCYTOSIS 0; HELMET CELLS 0; HOWELL-JOLLY BODIES 0; MACROCYTOSIS 0; OVALOCYTE 0; PLATELET ESTIMATE NORMAL; ROULEAU 0; SICKELED CELLS 0; TARGET CELLS 0; TEAR DROP CELLS 0; TOXIC GRANULATION 0
[2021-04-24 19:54] VITALS: BP 115/78; PULSE 86; TEMP 98
[2021-04-24 20:35] LABS: BASO % 0.5 % (0-2.0); EOS % 5.2 % (0-4.5); HEMATOCRIT 23.9 % (35.4-49); HEMOGLOBIN 7.9 GM/dL (11.7-16.9); MCH 28.4 pg (25.7-33.7); MCHC 33.1 g/dl (32.0-35.9); MEAN PLT VOLUME 10.3 fl (7.5-11.1); MONO % 23.2 % (3.8-10.2); NEUT % 66.1 % (42.8-82.8); PLATELET COUNT 275 10^3/uL (134-434); RBC 2.78 M/mm3 (4.00-5.60); RDW 15.9 % (11.9-15.9); WHITE BLOOD COUNT 25.3 K/mm3 (4.0-10.0)
[2021-04-24 21:35] LABS: ANISOCYTOSIS 1+; MACROCYTOSIS 0; PLATELET ESTIMATE NORMAL; TARGET CELLS 1+
== END 2021-04-24 19:54 | disposition home or self-care (01) ==
LOC: JONCBLOOD 06:21
PROVIDERS: ATTEND Internal Medicine Hematology & Oncology
PROC: 30233H1 Transfusion of Nonautologous Whole Blood into Peripheral Vein, Percutaneous Approach (ICD-10-PCS; principal; 2021-04-24)
DX: C94.6 Myelodysplastic disease, not elsewhere classified (principal)
CPT/HCPCS: 36415; 36430; 80053; 83615; 83735; 84550; 85025; 86850; 86900; 86901; 86922; P9058

== ENCOUNTER 2021-05-05 08:18 | Observation (INO) | payer BC, OTHER ==
[2021-05-05 09:42] LABS: BASO % 0.7 % (0-2.0); EOS % 4.2 % (0-4.5); HEMATOCRIT 21.2 % (35.4-49); LYMPH % 2.1 % (8-40); MCH 28.9 pg (25.7-33.7); MCHC 32.6 g/dl (32.0-35.9); MEAN CELL VOLUME 88.6 fl (80-96); MEAN PLT VOLUME 9.9 fl (7.5-11.1); MONO % 14.9 % (3.8-10.2); NEUT % 78.1 % (42.8-82.8); PLATELET COUNT 229 10^3/uL (134-434); RBC 2.39 M/mm3 (4.00-5.60); RDW 15.8 % (11.9-15.9)
[2021-05-05 09:45] LABS: HEMOGLOBIN 6.9 GM/dL (11.7-16.9); WHITE BLOOD COUNT 33.9 K/mm3 (4.0-10.0)
[2021-05-05 09:54] LABS: INR 1.41 (0.83-1.09); PROTHROMBIN TIME (PATIENT) 15.9 SEC (9.7-13.0)
[2021-05-05 09:57] LABS: ACTIVATED PTT 30.9 SECONDS (25.2-36.5)
[2021-05-05 10:01] LABS: CHLORIDE 109 mmol/L (98-107); SODIUM 140 mmol/L (136-145)
[2021-05-05 10:03] LABS: ANION GAP 7 MMOL/L (8-16); BLOOD UREA NITROGEN 40.5 mg/dL (7-18); CALCIUM 8.5 mg/dL (8.5-10.1); CO2 25 mmol/L (21-32)
[2021-05-05 10:04] LABS: GLUCOSE,RANDOM 108 mg/dL (74-106)
[2021-05-05 10:07] LABS: BILIRUBIN,TOTAL 0.3 mg/dL (0.2-1); CREATININE 1.1 mg/dL (0.55-1.3); SGOT/AST 12 U/L (15-37); SGPT/ALT 17 U/L (13-61); TOT PROT 6.9 g/dl (6.4-8.2)
[2021-05-05 10:08] LABS: ALK PHOS 123 U/L (45-117)
[2021-05-05 10:45] LABS: ANISOCYTOSIS 1+; MACROCYTOSIS 0; OVALOCYTE 1+; PLATELET ESTIMATE NORMAL; TARGET CELLS 1+; TEAR DROP CELLS 1+
[2021-05-05] MEDS ORDERED: HYDROXYUREA 500 MG CAPSULE PO SCH (14:00)
[2021-05-05 18:58] VITALS: BMI 21.7
[2021-05-05] MEDS: HYDROXYUREA 500 MG CAPSULE PO SCH (22:09)
[2021-05-05] MEDS: SERTRALINE HCL 50 MG TABLET (FP) PO SCH (22:09)
[2021-05-06] MEDS: HYDROXYUREA 500 MG CAPSULE PO SCH ×2 (10:18→21:02)
[2021-05-06] MEDS: TAMSULOSIN HCL 0.4 MG CAP PO SCH (10:19)
[2021-05-06] MEDS: PANTOPRAZOLE 40 MG TABLET PO SCH (10:19)
[2021-05-06 15:20] LABS: HEMOGLOBIN 8.1 GM/dL (11.7-16.9); MCH 28.6 pg (25.7-33.7); MCHC 32.6 g/dl (32.0-35.9); MEAN CELL VOLUME 87.9 fl (80-96); MEAN PLT VOLUME 10.1 fl (7.5-11.1); PLATELET COUNT 205 10^3/uL (134-434); RBC 2.84 M/mm3 (4.00-5.60); RDW 15.7 % (11.9-15.9)
[2021-05-06 15:27] LABS: WHITE BLOOD COUNT 35.5 K/mm3 (4.0-10.0)
[2021-05-06] MEDS: SILVER SULFADIAZINE 1% TOP CREAM 50 GM JAR TP SCH (15:36)
[2021-05-06] MEDS: SERTRALINE HCL 50 MG TABLET (FP) PO SCH (21:02)
[2021-05-07] MEDS: TAMSULOSIN HCL 0.4 MG CAP PO SCH (09:25)
[2021-05-07] MEDS: PANTOPRAZOLE 40 MG TABLET PO SCH (09:25)
[2021-05-07] MEDS: HYDROXYUREA 500 MG CAPSULE PO SCH ×2 (09:25→21:00)
[2021-05-07] MEDS: SILVER SULFADIAZINE 1% TOP CREAM 50 GM JAR TP SCH (09:26)
[2021-05-07] MEDS: SERTRALINE HCL 50 MG TABLET (FP) PO SCH (21:00)
[2021-05-08 08:40] LABS: HEMATOCRIT 25.7 % (35.4-49); HEMOGLOBIN 8.6 GM/dL (11.7-16.9); MCH 29.5 pg (25.7-33.7); MCHC 33.5 g/dl (32.0-35.9); MEAN PLT VOLUME 9.9 fl (7.5-11.1); PLATELET COUNT 213 10^3/uL (134-434); RBC 2.92 M/mm3 (4.00-5.60); RDW 15.7 % (11.9-15.9)
[2021-05-08 08:45] LABS: WHITE BLOOD COUNT 33.2 K/mm3 (4.0-10.0)
[2021-05-08 09:02] VITALS: BP 131/80; PULSE 95; TEMP 98.3
[2021-05-08] MEDS: PANTOPRAZOLE 40 MG TABLET PO SCH (09:03)
[2021-05-08] MEDS: HYDROXYUREA 500 MG CAPSULE PO SCH (09:03)
[2021-05-08] MEDS: TAMSULOSIN HCL 0.4 MG CAP PO SCH (09:03)
[2021-05-08] MEDS: SILVER SULFADIAZINE 1% TOP CREAM 50 GM JAR TP SCH (09:04)
[2021-05-08 09:16] LABS: CALCIUM 8.3 mg/dL (8.5-10.1)
[2021-05-08 09:17] LABS: ALBUMIN 2.4 g/dl (3.4-5.0); BLOOD UREA NITROGEN 32.5 mg/dL (7-18); MAGNESIUM 2.2 mg/dL (1.8-2.4)
[2021-05-08 09:19] LABS: CREATININE 0.9 mg/dL (0.55-1.3)
[2021-05-08 09:21] LABS: BILIRUBIN,TOTAL 0.5 mg/dL (0.2-1); TOT PROT 6.4 g/dl (6.4-8.2)
[2021-05-08 10:44] LABS: ANISOCYTOSIS 0; MACROCYTOSIS 0; PLATELET ESTIMATE NORMAL; TARGET CELLS 1+
== END 2021-05-08 17:57 | disposition home health service (06) ==
LOC: JER 08:18 → JERBED 12:16 → J7W 18:27
PROVIDERS: ADMIT Internal Medicine; ATTEND Internal Medicine
PROC: 30233N1 Transfusion of Nonautologous Red Blood Cells into Peripheral Vein, Percutaneous Approach (ICD-10-PCS; principal; 2021-05-05)
DX: D64.9 Anemia, unspecified (principal); C94.6 Myelodysplastic disease, not elsewhere classified; C76.0 Malignant neoplasm of head, face and neck; N40.0 Benign prostatic hyperplasia without lower urinary tract symptoms; Z90.49 Acquired absence of other specified parts of digestive tract; I48.91 Unspecified atrial fibrillation; Z91.018 Allergy to other foods
CPT/HCPCS: 36415; 36430; 80053; 82272; 82550; 83735; 84484; 85025; 85027; 85610; 85730; 86850; 86900; 86901; 86922; 93005; 93010; 97116-GP; 97161-GP; 99285-25; C9803; G0378; J8999; P9058; U0003; U0005

== ENCOUNTER 2021-05-22 12:06 | Emergency (ER) | payer BC, OTHER ==
[2021-05-22 12:32] VITALS: BMI 22.1
[2021-05-22 13:32] LABS: HEMATOCRIT 22.4 % (35.4-49); HEMOGLOBIN 7.2 GM/dL (11.7-16.9); MCH 28.4 pg (25.7-33.7); MEAN CELL VOLUME 88.7 fl (80-96); MEAN PLT VOLUME 10.4 fl (7.5-11.1); PLATELET COUNT 184 10^3/uL (134-434); RBC 2.53 M/mm3 (4.00-5.60); RDW 16.6 % (11.9-15.9); WHITE BLOOD COUNT 28.9 K/mm3 (4.0-10.0)
[2021-05-22 14:05] LABS: CHLORIDE 112 mmol/L (98-107); SODIUM 145 mmol/L (136-145)
[2021-05-22 14:07] LABS: CALCIUM 8.6 mg/dL (8.5-10.1)
[2021-05-22 14:08] LABS: ALBUMIN 2.9 g/dl (3.4-5.0); BLOOD UREA NITROGEN 35.3 mg/dL (7-18); GLUCOSE,RANDOM 95 mg/dL (74-106)
[2021-05-22 14:11] LABS: ANION GAP 9 MMOL/L (8-16); CO2 24 mmol/L (21-32); SGOT/AST 22 U/L (15-37); SGPT/ALT 25 U/L (13-61)
[2021-05-22 14:13] LABS: BILIRUBIN,TOTAL 0.4 mg/dL (0.2-1)
[2021-05-22 14:14] LABS: ALK PHOS 108 U/L (45-117); TOT PROT 6.9 g/dl (6.4-8.2)
[2021-05-22 14:43] LABS: ANISOCYTOSIS 1+; MACROCYTOSIS 0; OVALOCYTE 1+; PLATELET ESTIMATE NORMAL
[2021-05-22 15:27] LABS: INR 1.36 (0.83-1.09); PROTHROMBIN TIME (PATIENT) 15.7 SEC (9.7-13.0)
[2021-05-22 15:30] LABS: ACTIVATED PTT 31.2 SECONDS (25.2-36.5)
[2021-05-22 18:00] VITALS: BP 120/62; PULSE 95; TEMP 98.6
== END 2021-05-22 19:10 | disposition home or self-care (01) ==
LOC: JER 12:06
DX: S22.49XA Multiple fractures of ribs, unspecified side, initial encounter for closed fracture (principal); W01.0XXA Fall on same level from slipping, tripping and stumbling without subsequent striking against object, initial encounter
CPT/HCPCS: 36415; 36430; 70450-TC; 71045-TC-FY; 71111-TC-FY; 71260-TC; 72125-TC; 73523-TC-FY; 74177-TC; 80053; 82550; 84484; 85025; 85610; 85730; 86850; 86900; 86901; 86922; 93005; 93010; 99285-25; C9803; P9058; U0003; U0005

== ENCOUNTER 2021-05-23 09:55 | Observation (INO) | payer BC, OTHER ==
[2021-05-23 11:04] LABS: BASO % 0.3 % (0-2.0); EOS % 1.1 % (0-4.5); HEMATOCRIT 24.2 % (35.4-49); HEMOGLOBIN 7.7 GM/dL (11.7-16.9); LYMPH % 2.4 % (8-40); MCH 28.4 pg (25.7-33.7); MCHC 31.6 g/dl (32.0-35.9); MEAN CELL VOLUME 89.9 fl (80-96); MEAN PLT VOLUME 10.9 fl (7.5-11.1); MONO % 14.6 % (3.8-10.2); NEUT % 81.6 % (42.8-82.8); PLATELET COUNT 195 10^3/uL (134-434); RDW 16.8 % (11.9-15.9); WHITE BLOOD COUNT 27.5 K/mm3 (4.0-10.0)
[2021-05-23 11:17] LABS: INR 1.34 (0.83-1.09); PROTHROMBIN TIME (PATIENT) 15.4 SEC (9.7-13.0)
[2021-05-23 11:20] LABS: ACTIVATED PTT 33.1 SECONDS (25.2-36.5)
[2021-05-23 11:33] LABS: CALCIUM 8.2 mg/dL (8.5-10.1)
[2021-05-23 11:34] LABS: ALBUMIN 2.8 g/dl (3.4-5.0); BLOOD UREA NITROGEN 35.4 mg/dL (7-18)
[2021-05-23 11:37] LABS: CREATININE 1.1 mg/dL (0.55-1.3)
[2021-05-23 11:39] LABS: BILIRUBIN,TOTAL 0.3 mg/dL (0.2-1)
[2021-05-23 11:41] LABS: TOT PROT 6.7 g/dl (6.4-8.2)
[2021-05-23 13:31] LABS: ANISOCYTOSIS 1+; MACROCYTOSIS 1+; PLATELET ESTIMATE NORMAL
[2021-05-23] MEDS ORDERED: SOTROVIMAB 500 MG in SODIUM CHLORIDE 100 ML IVPB ONE (14:01)
[2021-05-23] MEDS ORDERED: ACETAMINOPHEN 325 MG TABLET (FP) PO PRN (18:42)
[2021-05-23] MEDS ORDERED: ACETAMINOPHEN 325 MG TABLET (FP) ONE (19:03)
[2021-05-23] MEDS: HYDROXYUREA 500 MG CAPSULE PO SCH (21:12)
[2021-05-23] MEDS: PRIMIDONE 250 MG TABLET PO SCH (23:10)
[2021-05-23] MEDS: levETIRAcetam 250 MG TABLET PO SCH (23:10)
[2021-05-23 23:49] VITALS: BMI 19.8
[2021-05-24 05:36] LABS: HEMATOCRIT 22.6 % (35.4-49); HEMOGLOBIN 7.3 GM/dL (11.7-16.9); MCH 28.7 pg (25.7-33.7); MCHC 32.2 g/dl (32.0-35.9); MEAN PLT VOLUME 10.8 fl (7.5-11.1); PLATELET COUNT 162 10^3/uL (134-434); RBC 2.54 M/mm3 (4.00-5.60); WHITE BLOOD COUNT 24.6 K/mm3 (4.0-10.0)
[2021-05-24 06:09] LABS: ALBUMIN 2.6 g/dl (3.4-5.0); BLOOD UREA NITROGEN 34.8 mg/dL (7-18); CALCIUM 8.1 mg/dL (8.5-10.1)
[2021-05-24 06:11] LABS: CREATININE 0.9 mg/dL (0.55-1.3)
[2021-05-24 06:13] LABS: BILIRUBIN,TOTAL 0.3 mg/dL (0.2-1); TOT PROT 6.3 g/dl (6.4-8.2)
[2021-05-24] MEDS: HYDROXYUREA 500 MG CAPSULE PO SCH ×2 (07:17→17:57)
[2021-05-24] MEDS: PRIMIDONE 250 MG TABLET PO SCH ×3 (07:17→21:01)
[2021-05-24 09:44] LABS: ANISOCYTOSIS 0; HELMET CELLS 0; HOWELL-JOLLY BODIES 0; MACROCYTOSIS 0; OVALOCYTE 0; PLATELET ESTIMATE NORMAL; ROULEAU 0; SICKELED CELLS 0; TARGET CELLS 0; TEAR DROP CELLS 0; TOXIC GRANULATION 0
[2021-05-24] MEDS: FINASTERIDE 5 MG TABLET (FP) PO SCH (11:45)
[2021-05-24] MEDS: PANTOPRAZOLE 40 MG TABLET PO SCH (11:45)
[2021-05-24] MEDS: levETIRAcetam 250 MG TABLET PO SCH ×2 (11:45→21:00)
[2021-05-24] MEDS: TAMSULOSIN HCL 0.4 MG CAP PO SCH (11:45)
[2021-05-24] MEDS: SERTRALINE HCL 50 MG TABLET (FP) PO SCH (11:45)
[2021-05-25] MEDS: PRIMIDONE 250 MG TABLET PO SCH ×3 (05:17→21:44)
[2021-05-25] MEDS: HYDROXYUREA 500 MG CAPSULE PO SCH ×2 (06:00→18:21)
[2021-05-25 08:53] LABS: HEMATOCRIT 23.5 % (35.4-49); HEMOGLOBIN 7.7 GM/dL (11.7-16.9); MCH 29.1 pg (25.7-33.7); MCHC 32.7 g/dl (32.0-35.9); MEAN CELL VOLUME 88.9 fl (80-96); MEAN PLT VOLUME 10.9 fl (7.5-11.1); PLATELET COUNT 144 10^3/uL (134-434); RBC 2.64 M/mm3 (4.00-5.60); RDW 15.7 % (11.9-15.9); WHITE BLOOD COUNT 23.3 K/mm3 (4.0-10.0)
[2021-05-25 09:43] LABS: ANISOCYTOSIS 0; HELMET CELLS 0; HOWELL-JOLLY BODIES 0; MACROCYTOSIS 0; OVALOCYTE 0; PLATELET ESTIMATE DECREASED; ROULEAU 0; SICKELED CELLS 0; TARGET CELLS 0; TEAR DROP CELLS 0; TOXIC GRANULATION 0
[2021-05-25] MEDS: TAMSULOSIN HCL 0.4 MG CAP PO SCH (10:40)
[2021-05-25] MEDS: levETIRAcetam 250 MG TABLET PO SCH ×2 (10:40→21:43)
[2021-05-25] MEDS: SERTRALINE HCL 50 MG TABLET (FP) PO SCH (10:41)
[2021-05-25] MEDS: FINASTERIDE 5 MG TABLET (FP) PO SCH (10:41)
[2021-05-25] MEDS: PANTOPRAZOLE 40 MG TABLET PO SCH (10:41)
[2021-05-25] MEDS ORDERED: HYDROXYUREA 500 MG CAPSULE PO ONE (21:15)
[2021-05-26] MEDS: PRIMIDONE 250 MG TABLET PO SCH ×2 (06:11→14:02)
[2021-05-26] MEDS ORDERED: HYDROXYUREA 500 MG CAPSULE PO SCH (10:00)
[2021-05-26 10:34] LABS: HEMOGLOBIN 8.3 GM/dL (11.7-16.9); MCH 29.2 pg (25.7-33.7); MEAN CELL VOLUME 88.3 fl (80-96); MEAN PLT VOLUME 10.7 fl (7.5-11.1); PLATELET COUNT 156 10^3/uL (134-434); RBC 2.83 M/mm3 (4.00-5.60); RDW 16.1 % (11.9-15.9); WHITE BLOOD COUNT 27.3 K/mm3 (4.0-10.0)
[2021-05-26 10:49] VITALS: BP 121/67; PULSE 89; TEMP 98.2
[2021-05-26] MEDS: TAMSULOSIN HCL 0.4 MG CAP PO SCH (10:50)
[2021-05-26] MEDS: SERTRALINE HCL 50 MG TABLET (FP) PO SCH (10:51)
[2021-05-26] MEDS: PANTOPRAZOLE 40 MG TABLET PO SCH (10:51)
[2021-05-26] MEDS: FINASTERIDE 5 MG TABLET (FP) PO SCH (10:51)
[2021-05-26] MEDS: levETIRAcetam 250 MG TABLET PO SCH (10:51)
[2021-05-26 11:03] LABS: BLOOD UREA NITROGEN 24.3 mg/dL (7-18); CALCIUM 7.8 mg/dL (8.5-10.1)
[2021-05-26 11:06] LABS: CREATININE 0.8 mg/dL (0.55-1.3)
[2021-05-27] MEDS ORDERED: COLLAGENASE CLOSTRIDIUM HIST. 30 GRAMS TUBE TP SCH (10:00)
== END 2021-05-26 14:00 ==
LOC: JER 09:55 → UNDOADMOB 11:08 → JERBED 11:08 → OBSVTOIN 18:34 → INTOOBSV 18:34 → JERBED 22:41 → J5S 22:41 → JERBED 05-24 14:29 → J5S 05-24 14:29
PROVIDERS: ADMIT Family Medicine; ATTEND Family Medicine
PROC: 30233N1 Transfusion of Nonautologous Red Blood Cells into Peripheral Vein, Percutaneous Approach (ICD-10-PCS; principal; 2021-05-24)
PROC: 3E033GC Introduction of Other Therapeutic Substance into Peripheral Vein, Percutaneous Approach (ICD-10-PCS; 2021-05-24)
DX: U07.1 COVID-19 (principal); D46.9 Myelodysplastic syndrome, unspecified; D75.9 Disease of blood and blood-forming organs, unspecified; I48.91 Unspecified atrial fibrillation; R53.1 Weakness; S04.50XA Injury of facial nerve, unspecified side, initial encounter; I10 Essential (primary) hypertension; K21.9 Gastro-esophageal reflux disease without esophagitis; N40.0 Benign prostatic hyperplasia without lower urinary tract symptoms; Z95.5 Presence of coronary angioplasty implant and graft; C76.0 Malignant neoplasm of head, face and neck; R25.1 Tremor, unspecified; F32.9 Major depressive disorder, single episode, unspecified; M19.90 Unspecified osteoarthritis, unspecified site; Z90.49 Acquired absence of other specified parts of digestive tract; S22.41XA Multiple fractures of ribs, right side, initial encounter for closed fracture; S27.9XXA Injury of unspecified intrathoracic organ, initial encounter; W18.39XA Other fall on same level, initial encounter; Z91.81 History of falling; Y93.89 Activity, other specified; Y92.89 Other specified places as the place of occurrence of the external cause; Z91.018 Allergy to other foods
CPT/HCPCS: 36415; 36430; 80048; 80053; 83036; 85025; 85027; 85610; 85730; 86850; 86900; 86901; 86922; 94010; 96365; 97116-GP; 97162-GP; 99285-25; C9803; G0378; J8999; M0247; P9058; Q0247; U0003; U0005

== ENCOUNTER 2021-06-09 10:58 | Observation (INO) | payer BC, OTHER ==
[2021-06-09] MEDS ORDERED: SODIUM CHLORIDE 0.9% 500 ML INFUS.BAG IV ONE (12:14)
[2021-06-09 12:28] LABS: INR 1.4 (0.83-1.09); PROTHROMBIN TIME (PATIENT) 16.1 SEC (9.7-13.0)
[2021-06-09 12:30] LABS: ACTIVATED PTT 27.2 SECONDS (25.2-36.5)
[2021-06-09 12:33] LABS: BLOOD UREA NITROGEN 39.3 mg/dL (7-18)
[2021-06-09 12:35] LABS: ALBUMIN 2.4 g/dl (3.4-5.0); HEMATOCRIT 17.9 % (35.4-49); MCH 30.4 pg (25.7-33.7); MCHC 33.1 g/dl (32.0-35.9); MEAN CELL VOLUME 91.9 fl (80-96); MEAN PLT VOLUME 10.5 fl (7.5-11.1); PLATELET COUNT 257 10^3/uL (134-434); RBC 1.95 M/mm3 (4.00-5.60); RDW 15.3 % (11.9-15.9); WHITE BLOOD COUNT 10.9 K/mm3 (4.0-10.0)
[2021-06-09 12:37] LABS: CREATININE 0.8 mg/dL (0.55-1.3)
[2021-06-09 12:39] LABS: BILIRUBIN,TOTAL 0.3 mg/dL (0.2-1); TOT PROT 6.1 g/dl (6.4-8.2)
[2021-06-09 12:41] LABS: HEMOGLOBIN 5.9 GM/dL (11.7-16.9)
[2021-06-09 14:10] LABS: ANISOCYTOSIS 1+; MACROCYTOSIS 0; OVALOCYTE 1+
[2021-06-09 14:11] LABS: PLATELET ESTIMATE NORMAL
[2021-06-09 15:53] VITALS: BMI 19.8
[2021-06-09] MEDS ORDERED: ACETAMINOPHEN 325 MG TABLET (FP) PO PRN (16:13)
[2021-06-09] MEDS: HYDROXYUREA 500 MG CAPSULE PO SCH (22:11)
[2021-06-09] MEDS: PRIMIDONE 250 MG TABLET PO SCH (22:11)
[2021-06-09] MEDS: METOPROLOL TARTRATE 50 MG TABLET (FP) PO SCH (22:11)
[2021-06-10] MEDS: PRIMIDONE 250 MG TABLET PO SCH ×2 (05:50→13:34)
[2021-06-10] MEDS ORDERED: TAMSULOSIN HCL 0.4 MG CAP PO SCH (08:30)
[2021-06-10 09:09] LABS: HEMATOCRIT 29.3 % (35.4-49); HEMOGLOBIN 9.6 GM/dL (11.7-16.9); MCHC 32.8 g/dl (32.0-35.9); MEAN CELL VOLUME 88.3 fl (80-96); MEAN PLT VOLUME 10.6 fl (7.5-11.1); PLATELET COUNT 227 10^3/uL (134-434); RBC 3.31 M/mm3 (4.00-5.60); RDW 17.1 % (11.9-15.9); WHITE BLOOD COUNT 13.9 K/mm3 (4.0-10.0)
[2021-06-10] MEDS: METOPROLOL TARTRATE 50 MG TABLET (FP) PO SCH (09:21)
[2021-06-10] MEDS: HYDROXYUREA 500 MG CAPSULE PO SCH (09:21)
[2021-06-10 09:27] LABS: ALBUMIN 2.5 g/dl (3.4-5.0); BLOOD UREA NITROGEN 32.3 mg/dL (7-18); CALCIUM 8.4 mg/dL (8.5-10.1)
[2021-06-10 09:30] LABS: CREATININE 0.8 mg/dL (0.55-1.3)
[2021-06-10 09:32] LABS: BILIRUBIN,TOTAL 0.6 mg/dL (0.2-1); TOT PROT 6.2 g/dl (6.4-8.2)
[2021-06-10] MEDS ORDERED: SERTRALINE HCL 50 MG TABLET (FP) PO SCH (10:00)
[2021-06-10] MEDS ORDERED: PANTOPRAZOLE 20 MG TABLET PO SCH (10:00)
[2021-06-10] MEDS ORDERED: METOPROLOL TARTRATE 50 MG TABLET (FP) PO SCH (10:00)
[2021-06-10] MEDS ORDERED: FINASTERIDE 5 MG TABLET (FP) PO SCH (10:00)
[2021-06-10] MEDS ORDERED: MINERAL OIL/PET HY-PHL TOPICAL OINTMENT 454 GM JAR TP SCH (10:30)
[2021-06-10] MEDS ORDERED: BACITRACIN 15 GM TUBE TOPICAL OINTMENT TP SCH (10:30)
[2021-06-10 17:44] VITALS: BP 123/67; PULSE 85; TEMP 97.9
== END 2021-06-10 19:24 ==
LOC: JER 10:58 → JERBED 12:12 → J8W 15:16
PROVIDERS: ADMIT Family Medicine; ATTEND Family Medicine
PROC: 30233N1 Transfusion of Nonautologous Red Blood Cells into Peripheral Vein, Percutaneous Approach (ICD-10-PCS; principal; 2021-06-09)
PROC: 3E0337Z Introduction of Electrolytic and Water Balance Substance into Peripheral Vein, Percutaneous Approach (ICD-10-PCS; 2021-06-09)
DX: D46.9 Myelodysplastic syndrome, unspecified (principal); D75.9 Disease of blood and blood-forming organs, unspecified; L30.9 Dermatitis, unspecified; K21.9 Gastro-esophageal reflux disease without esophagitis; R53.1 Weakness; I48.91 Unspecified atrial fibrillation; Z85.828 Personal history of other malignant neoplasm of skin; Z90.49 Acquired absence of other specified parts of digestive tract; Z95.5 Presence of coronary angioplasty implant and graft; F03.90 Unspecified dementia, unspecified severity, without behavioral disturbance, psychotic disturbance, mood disturbance, and anxiety; I10 Essential (primary) hypertension; Z91.018 Allergy to other foods
CPT/HCPCS: 36415; 36430; 36511; 71045-TC-FY; 80053; 82272; 85025; 85027; 85610; 85730; 86850; 86900; 86901; 86922; 93005; 93010; 99285-25; C9803; G0378; J8999; P9038; P9058; U0003; U0005

== ENCOUNTER → 2021-06-29 | Day surgery (SDC) | payer OTHER ==
[~2021-06-29] MED LIST changes: -CEMIPLIMAB RWLC IV ONE; -DEXAMETHASONE SODIUM PHOSPHATE 4 MG, ONDANSETRON INJECTION 8 MG in SODIUM CHLORIDE 100 ML IVPB ONE; +FUROSEMIDE 20 MG TABLET (FP) PO ONE; +POTASSIUM CHLORIDE TABS 20 MEQ TABLET.ER (FP) PO ONE; -SODIUM CHLORIDE 250 ML IV ONE; -SODIUM CHLORIDE IV ONE; -diphenhydrAMINE HCL 12.5 MG/5 ML UNIT-DOSE CUPS PO ONE
[2021-06-29 09:33] LABS: HEMATOCRIT 21.4 % (35.4-49); HEMOGLOBIN 7.2 GM/dL (11.7-16.9); MCH 30.3 pg (25.7-33.7); MCHC 33.8 g/dl (32.0-35.9); MEAN CELL VOLUME 89.6 fl (80-96); MEAN PLT VOLUME 9.9 fl (7.5-11.1); PLATELET COUNT 51 10^3/uL (134-434); RBC 2.38 M/mm3 (4.00-5.60); RDW 16.6 % (11.9-15.9); WHITE BLOOD COUNT 7.3 K/mm3 (4.0-10.0)
[2021-06-29 11:19] LABS: ANISOCYTOSIS 0; MACROCYTOSIS 0
[2021-06-29 18:05] VITALS: BP 129/50; PULSE 83; TEMP 98.4
[2021-06-29 19:36] LABS: HEMATOCRIT 22.6 % (35.4-49); HEMOGLOBIN 7.8 GM/dL (11.7-16.9); MCHC 34.4 g/dl (32.0-35.9); MEAN PLT VOLUME 9.7 fl (7.5-11.1); RDW 15.9 % (11.9-15.9); WHITE BLOOD COUNT 6.5 K/mm3 (4.0-10.0)
[2021-06-29 19:45] LABS: PLATELET COUNT 35 10^3/uL (134-434)
== END | disposition home or self-care (01) ==
LOC: JONCBLOOD 06-12 07:09
PROVIDERS: ATTEND Internal Medicine Hematology & Oncology
PROC: 30233H1 Transfusion of Nonautologous Whole Blood into Peripheral Vein, Percutaneous Approach (ICD-10-PCS; principal; 2021-06-29)
DX: C94.6 Myelodysplastic disease, not elsewhere classified (principal); C44.321 Squamous cell carcinoma of skin of nose; C44.329 Squamous cell carcinoma of skin of other parts of face
CPT/HCPCS: 36415; 36430; 36511; 85025; 85027; 86850; 86900; 86901; 86922; P9038; P9058

== ENCOUNTER 2021-07-07 15:16 | Inpatient (IN) | payer OTHER ==
[2021-07-07] MEDS ORDERED: VANCOMYCIN 1 GM in D5W (PRE-DOCKED) 1,000 MG/250 ML IVPB ONE (16:05)
[2021-07-07] MEDS ORDERED: PIPERACILLIN/TAZOB 4.5 GM 4.5 GM in DEXTROSE 5%-WATER 100 ML IVPB ONE (16:05)
[2021-07-07] MEDS ORDERED: LACTATED RINGERS SOLUTION 1000 ML INFUS.BAG IV ONE (16:05)
[2021-07-07] MEDS ORDERED: ACETAMINOPHEN 1000 MG/100 ML BAG IVPB ONE ×2 (16:17→22:24)
[2021-07-07] MEDS ORDERED: PIPERACILLIN/TAZOB 4.5 GM 4.5 GM/100 ML BAG IVPB ONE (16:17)
[2021-07-07] MEDS ORDERED: VANCOMYCIN 1 GRAM (PRE-DOCKED) 1,000 MG/250 ML BAG IVPB ONE (16:17)
[2021-07-07 16:52] LABS: VENOUS BASE EXCESS -3.9 mmol/L (-2-2); VENOUS O2 SATURATION 43.5 % (70-80); VENOUS PCO2 41.7 mmHg (38-52); VENOUS PH 7.335 (7.310-7.410)
[2021-07-07 17:06] LABS: HEMATOCRIT 30.8 % (35.4-49); HEMOGLOBIN 10.1 GM/dL (11.7-16.9); MCH 29.3 pg (25.7-33.7); MCHC 32.7 g/dl (32.0-35.9); MEAN CELL VOLUME 89.6 fl (80-96); RBC 3.44 M/mm3 (4.00-5.60); RDW 15.6 % (11.9-15.9); WHITE BLOOD COUNT 24.5 K/mm3 (4.0-10.0)
[2021-07-07 17:17] LABS: CALCIUM 8.2 mg/dL (8.5-10.1)
[2021-07-07 17:18] LABS: ALBUMIN 2.4 g/dl (3.4-5.0); BLOOD UREA NITROGEN 31.6 mg/dL (7-18); MAGNESIUM 1.7 mg/dL (1.8-2.4)
[2021-07-07 17:21] LABS: CREATININE 1.1 mg/dL (0.55-1.3)
[2021-07-07 17:22] LABS: BILIRUBIN,TOTAL 0.7 mg/dL (0.2-1)
[2021-07-07] MEDS ORDERED: MAGNESIUM SULF 50% (8.12 MEQ/2 ML-1 GM VIAL) IVPB ONE (17:22)
[2021-07-07 17:23] LABS: TOT PROT 6.3 g/dl (6.4-8.2)
[2021-07-07] MEDS ORDERED: MAGNESIUM 1GM/D5W - 1 GM/100 ML IVPB IVPB ONE (17:52)
[2021-07-07] MEDS ORDERED: ACETAMINOPHEN INJECTION 100 ML IVPB ONE (17:52)
[2021-07-07 17:57] LABS: ANISOCYTOSIS 3+; MACROCYTOSIS 0; OVALOCYTE 1+; PLATELET ESTIMATE DECREASED
[2021-07-07 18:12] LABS: PLATELET COUNT 16 10^3/uL (134-434)
[2021-07-07 18:23] LABS: MEAN PLT VOLUME 8.5 fl (7.5-11.1)
[2021-07-07] MEDS ORDERED: DEXTROSE 5%-LACTATED RINGERS 1,000 ML IV SCH (18:45)
[2021-07-07 21:19] LABS: INR 1.62 (0.83-1.09); PROTHROMBIN TIME (PATIENT) 18.7 SEC (9.7-13.0)
[2021-07-07 21:22] LABS: ACTIVATED PTT 37.4 SECONDS (25.2-36.5)
[2021-07-07 21:40] LABS: LACTIC ACID 3.5 mmol/L (0.4-2.0)
[2021-07-07] MEDS ORDERED: VANCOMYCIN 1 GM in D5W (PRE-DOCKED) 1,000 MG/250 ML IVPB SCH (22:00)
[2021-07-07] MEDS ORDERED: SODIUM CHLORIDE 500 ML IV STA (22:26)
[2021-07-07 22:35] VITALS: BMI 21.7
[2021-07-08] MEDS ORDERED: PIPERACILLIN/TAZOBACTAM 4.5 GM VIAL IVPB ONE ×2 (01:04→08:28)
[2021-07-08] MEDS ORDERED: DEXTROSE 5%-WATER 100 ML IVPB ONE ×2 (01:06→08:28)
[2021-07-08] MEDS: PIPERACILLIN/TAZOB 4.5 GM 4.5 GM in DEXTROSE 5%-WATER 100 ML IVPB SCH ×3 (01:17→09:59)
[2021-07-08] MEDS ORDERED: VANCOMYCIN/WATER FOR INJ (PEG) 1,000 MG/200 ML BAG IVPB SCH (05:00)
[2021-07-08] MEDS ORDERED: levETIRAcetam 500 MG TABLET (FP) PO ONE (06:48)
[2021-07-08 07:28] LABS: CALCIUM 7.8 mg/dL (8.5-10.1)
[2021-07-08 07:29] LABS: BLOOD UREA NITROGEN 34.7 mg/dL (7-18); MAGNESIUM 1.9 mg/dL (1.8-2.4)
[2021-07-08 07:32] LABS: CREATININE 1.2 mg/dL (0.55-1.3); PHOSPHOROUS 3.8 mg/dL (2.5-4.9)
[2021-07-08] MEDS: PRIMIDONE 250 MG TABLET PO SCH ×2 (08:00→15:00)
[2021-07-08] MEDS ORDERED: METOPROLOL TARTRATE 5 MG/5 ML VIAL IVPUSH PRN (08:10)
[2021-07-08] MEDS ORDERED: levETIRAcetam 250 MG TABLET PO ONE (08:15)
[2021-07-08] MEDS ORDERED: DEXAMETHASONE SOD PHOSPHATE 10 MG/1 ML VIAL IVPUSH ONE (08:16)
[2021-07-08] MEDS ORDERED: METOPROLOL TARTRATE 50 MG TABLET (FP) PO SCH ×2 (10:00)
[2021-07-08 13:18] LABS: LACTIC ACID 2.4 mmol/L (0.4-2.0)
[2021-07-08] MEDS ORDERED: REMDESIVIR 200 MG in SODIUM CHLORIDE 250 ML IVPB ONE (14:00)
[2021-07-08 16:57] VITALS: TEMP 97
[2021-07-08 16:58] VITALS: BP 65/43; PULSE 53
[2021-07-08] MEDS ORDERED: CEFEPIME 1 GM in DEXTROSE 5%-WATER 1 GM/100 ML BAG IVPB SCH (18:00)
[2021-07-09] MEDS ORDERED: DEXAMETHASONE SOD PHOSPHATE 10 MG/1 ML VIAL IVPUSH SCH (10:00)
[2021-07-09] MEDS ORDERED: REMDESIVIR 100 MG in SODIUM CHLORIDE 250 ML IVPB SCH (14:00)
== END 2021-07-08 18:45 | disposition expired | DRG 871 ==
LOC: JER 15:16 → JERBED 19:00 → J4W 21:13
PROVIDERS: ADMIT Family Medicine; ATTEND Nurse Practitioner Family
DX: A41.89 Other specified sepsis (principal); U07.1 COVID-19; J96.01 Acute respiratory failure with hypoxia; J12.82 Pneumonia due to coronavirus disease 2019; I48.20 Chronic atrial fibrillation, unspecified; D46.9 Myelodysplastic syndrome, unspecified; E83.42 Hypomagnesemia; K21.9 Gastro-esophageal reflux disease without esophagitis; F32.A Depression, unspecified; N40.0 Benign prostatic hyperplasia without lower urinary tract symptoms; D69.6 Thrombocytopenia, unspecified; I12.9 Hypertensive chronic kidney disease with stage 1 through stage 4 chronic kidney disease, or unspecified chronic kidney disease; N18.9 Chronic kidney disease, unspecified; I25.10 Atherosclerotic heart disease of native coronary artery without angina pectoris
CPT/HCPCS: 36415; 36430; 36511; 71045-TC-FY; 80048; 80053; 82728; 82803; 83605; 83615; 83735; 84100; 84484; 85025; 85032; 85379; 85384; 85610; 85730; 86140; 86850; 86900; 86901; 86922; 87040; 87804; 93005; 93010; 99291; C9399; C9803; J1100; P9034; P9038; P9058; U0003; U0005